=== PATIENT | female | born 1960 | race Caucasian/White ===

== ENCOUNTER → 2022-11-24 15:26 | Outpatient (BNVA) | payer OTHER, SELFPAY | PROVIDERS: Visit Provider Internal Medicine | DX: M17.11 Unilateral primary osteoarthritis, right knee (principal) | CPT/HCPCS: 20610 ==

== ENCOUNTER 2022-11-28 13:31 | Outpatient (REF) | payer OTHER, SELFPAY ==
[2022-11-28 14:54] LABS: Vitamin B12 455 pg/mL (200-900)
== END 2022-11-28 13:32 | disposition home or self-care (01) ==
LOC: HO.LAB 13:31
PROVIDERS: PCP Internal Medicine; Visit Provider Internal Medicine
DX: E53.8 Deficiency of other specified B group vitamins (principal)
CPT/HCPCS: 36415; 82607

== ENCOUNTER 2023-03-25 07:41 | Outpatient (REF) | payer OTHER, SELFPAY ==
[2023-03-25 09:22] LABS: TSH reflex Free T4 1.84 uIU/mL (0.32-4.0)
[2023-03-25 09:25] LABS: Alanine Aminotransferase 16 U/L (0-31); Albumin Level 4.1 g/dL (3.5-5.0); Alkaline Phosphatase 95 U/L (39-117); Anion Gap 19 (12-20); Aspartate Amino Transferase 28 U/L (5-31); Bilirubin Total 0.9 mg/dL (0.0-1.0); Blood Urea Nitrogen 6 mg/dL (9-16); C Reactive Protein 3.67 mg/dL (< or = 0.50); Calcium 9.8 mg/dL (8.4-10.2); Carbon Dioxide 21 mmol/L (22-29); Chloride 100 mmol/L (96-108); Estimated Glomerular Filt Rate > 60; Glucose Random 105 mg/dL (60-115); Sodium 136 mmol/L (135-145); Total Protein 8.1 g/dL (6.5-8.0)
[2023-03-25 15:49] LABS: CDiff Gene PCR NEGATIVE (Negative)
[2023-03-26 09:48] LABS: Adenovirus F 40/41 Not Detected (Not Detect.); Astrovirus Not Detected (Not Detect.); Campylobacter Not Detected (Not Detect.); Cryptosporidium Not Detected (Not Detect.); Cyclospora cayetanensis Not Detected (Not Detect.); E. coli EAEC Not Detected (Not Detect.); E. coli EPEC Not Detected (Not Detect.); E. coli ETEC Not Detected (Not Detect.); E. coli STEC Not Detected (Not Detect.); Entamoeba histolytica Not Detected (Not Detect.); Giardia lamblia Not Detected (Not Detect.); Plesiomonas shigelloides Not Detected (Not Detect.); Rotavirus A Not Detected (Not Detect.); Salmonella Not Detected (Not Detect.); Sapovirus Not Detected (Not Detect.); Shigella sp./EIEC Not Detected (Not Detect.); Vibrio Not Detected (Not Detect.); Vibrio Cholerae Not Detected (Not Detect.); Yersinia enterocolitica Not Detected (Not Detect.)
[2023-03-26 09:50] LABS: Norovirus GI/GII Detected (Not Detect.)
[2023-03-27 19:04] LABS: Immunoglobulin A 612 mg/dL (70-320)
[2023-03-27 19:18] LABS: Gliadin Deamidated IgA Ab 8.3 U/mL; Gliadin Deamidated IgG Ab <1.0 U/mL; Transglutaminase Ab IgG <1.0 U/mL; Transglutaminase IgA <1.0 U/mL
[2023-04-01 13:28] LABS: Endomysial IgA Antibody Negative (Negative)
[2023-04-02 16:24] LABS: Calprotectin, Fecal 60 mcg/g
[2023-04-03 17:28] LABS: Pancreatic Elastase-1 335 mcg/g
== END 2023-03-25 07:42 | disposition home or self-care (01) ==
LOC: HO.LAB 07:41
PROVIDERS: PCP Internal Medicine; Visit Provider Physician Assistant
DX: R19.7 Diarrhea, unspecified (principal)
CPT/HCPCS: 36415; 80053; 82656; 82784; 83993; 84443; 85025; 85652; 86140; 86231; 86258; 86364; 87177; 87209; 87493; 87507

== ENCOUNTER 2023-03-25 12:03 | Outpatient (REF) | payer OTHER, SELFPAY | END 2023-03-25 12:04 | disposition home or self-care (01) | LOC: HO.CT 12:03 | DX: Z13.89 Encounter for screening for other disorder (principal) ==

== ENCOUNTER 2023-04-21 18:07 | Inpatient (IN) | payer OTHER, SELFPAY ==
--- NOTE | ~2023-04-21 | CT_ITS ---
EXAMINATION: CT ABDOMEN AND PELVIS WITH CONTRAST CLINICAL INFORMATION: Abdominal pain. COMPARISON: None available. TECHNIQUE: Multidetector volumetric images were obtained from the superior aspect of the liver through the pubic symphysis following administration 85 mL of Omnipaque 350 intravenous contrast. Sagittal and coronal reformatted images were obtained on the technologist's workstation. Oral contrast: No This CT examination was performed using dose optimization techniques as appropriate, variously including the following: *Automated exposure control *Adjustment of mA and/or kV according to patient size (this includes techniques or standardized protocols for targeted exams where dose is matched to indication/reason for exam; i.e. extremities or head) *Use of iterative reconstruction technique DLP: 346 mGy-cm FINDINGS: LUNG BASES: The visualized lung bases are unremarkable. LIVER, GALLBLADDER, AND BILIARY TREE: The liver is of diminished attenuation. No focal liver lesions are seen. There is no intrahepatic biliary duct dilatation. There has been a prior cholecystectomy. PANCREAS: Unremarkable. SPLEEN: Unremarkable. ADRENAL GLANDS: Unremarkable. KIDNEYS AND URETERS: The kidneys are normal in size, shape, and attenuation. No hydronephrosis, hydroureter, or calculi seen. No perinephric stranding. BLADDER: Unremarkable. GASTROINTESTINAL TRACT: There has been a partial colectomy. There is mild thickening of the descending and rectosigmoid colon. There are diverticula of the descending and the sigmoid colon without diverticulitis. ABDOMINAL WALL: There is a small umbilical hernia containing fat. LYMPH NODES: Normal. VASCULAR: Unremarkable. PELVIC VISCERA: Unremarkable. OSSEOUS STRUCTURES: Unremarkable. CT/CT abdomen pelvis w IV con IMPRESSION: 1. Mildly thickened descending and rectosigmoid colon suggesting mild colitis. 2. Diverticula of the descending and sigmoid colon without diverticulitis. 3. Fatty infiltration of the liver. Fleischner guidelines were followed.
[2023-04-21 18:16] VITALS: BP 122/80; PULSE 81; RESP 20; TEMP 37.6; O2SAT 96; BMI 23.0
--- NOTE | 2023-04-21 18:18 | ED_ITS ---
HPI - General Adult General Chief complaint: Nausea/Vomiting/Diarrhea Stated complaint: dehydration Time Seen by Provider: 04/21/23 19:40 History of Present Illness HPI narrative: Patient is 63 years old with a history of ileocecal resection. Patient has abdominal pain nausea vomiting diarrhea that is been ongoing. Question history of Crohn's in the past. Multiple history of obstruction in the past. History of having low magnesium. Presented today with similar symptoms. Nausea vomiting diarrhea generalized malaise. No coughing or congestion or upper respiratory symptoms. No diaphoresis. Patient from home. Related Data Home Medications Medication Instructions Recorded Confirmed promethazine 12.5 mg tablet 12.5 mg PO QID PRN Nausea 11/24/22 04/22/23 escitalopram oxalate 5 mg tablet 5 mg PO DAILY 04/22/23 04/22/23 Previous Rx's Medication Instructions Recorded dicyclomine 10 mg capsule 10 mg PO BID PRN abdominal cramps 04/23/23 #30 caps famotidine 20 mg tablet (Pepcid) 20 mg PO BID #60 tabs 04/23/23 loperamide 2 mg capsule 2 mg PO Q4H PRN Diarrhea #30 caps 04/23/23 Allergies Allergy/AdvReac Type Severity Reaction Status Date / Time epinephrine Allergy Severe heart Verified 04/22/23 04:41 palpitations amoxicillin AdvReac Intermediate n/v Verified 04/22/23 04:41 Penicillins AdvReac Intermediate rash Verified 04/22/23 04:41 imitation seafood Allergy Severe Anaphylaxis Uncoded 04/22/23 04:41 Review of Systems Review of Systems: Positive abdominal pain positive nausea vomiting diarrhea PMFSH Past Medical History Attestation statement: The following information was validated with the patient. Medical History (Updated 04/23/23 @ 13:04 by Nao Lopez RN) Asthma Chronic abdominal pain Chronic diarrhea GERD (gastroesophageal reflux disease) History of colon polyps Hx of gastric ulcer Surgical History (Updated 04/23/23 @ 13:03 by Noa Lopez RN) History of colon resection History of orthopedic surgery Hx of cholecystectomy Hx of colonoscopy Hx of esophagogastroduodenoscopy Hx of plastic surgery Social History Social History Patient Tobacco Use Status: Never used Tobacco Smoked in Last 30 Days: No Use of substances other than those prescribed or required for medical reasons: No Currently Displaying Signs/Symptoms of Drug Intoxication Withdrawal: No Are you DNR?: No Advance Directives: No Advance Directives Information Provided: Yes Do you have thoughts of harming others: None Do you have a plan to hurt others: No Plan Patient : No service: No Physical Exam ED Vital Signs: Vital Signs - 24 hr 04/21/23 18:16 04/21/23 20:53 Temperature 99.7 F 98.4 F Pulse Rate 81 76 Respiratory Rate 20 16 Blood Pressure 122/80 126/86 Pulse Oximetry 96 96 Oxygen Delivery Method Room Air Room Air BMI result Body Mass Index 23.3 Appearance: Alert. Oriented X3. No acute distress. Eyes: Pupils equal, round and reactive to light. ENT: Pharynx normal. Neck: Normal inspection. Neck supple. No lymph nodes noted. No crepitus CVS: Normal heart rate and rhythm. Pulses normal. Normal S1 and S2 Respiratory: No respiratory distress. Breath sounds normal. No Wheezing. No rales Abdomen: Soft and nontender. No rigidity. No distention. good BS x4 Skin: Skin warm and dry. Normal skin color. Normal skin turgor. Extremities: No lower extremity edema. Neurovascular intact to all extremities. No Lacerations. No Rash Neuro: Oriented X 3. No motor deficit. No sensory deficit. Moving all extermities. No slurred speech Course Course Course Narrative: This is a rapid medical exam: Additional HPI, ROS, PE not included below will be deferred to primary provider. Patient is a 63-year-old female presenting to the emergency department with report of persistent nausea, vomiting, and diarrhea. States that she was contacted by the [facility] earlier in the month and told she was positive for Norovirus, states symptoms have persisted since then. Reports subjective fevers. History of ileocecal repair as well as hernia, complains of abdominal pain in area of hernia. 19:05 Received Oscar text [address] Dr. Falcon-he is concerned for Crohns flare and has added some additional orders, feels she should be admitted for stabilization, prepped for colonoscopy and upper endoscopy later in the week. He can be reached via Oscar Text tonight. Also received critical lab results of magnesium 1.0, lactic 2.3, automatic pilot mechanic notified. Plan: UA, labs Medications Administered Discontinued Medications Generic Name Dose Route Start Last Admin Trade Name Freq PRN Reason Stop Dose Admin Cholestyramine Resin 4 gm 04/22/23 09:00 04/22/23 08:24 Cholestyramine (With Sugar) 4 Gm Powd.Pack PO Not Given DAILY BIANCA Erythromycin 1 cm 04/22/23 21:00 04/23/23 07:45 Erythromycin Base 0.5% Oph Oin 1 Gm Tube EYE-BOTH Not Given BID BIANCA Escitalopram Oxalate 5 mg 04/22/23 09:00 04/23/23 07:45 Escitalopram Oxalate 5 Mg Tablet PO Not Given DAILY BIANCA Magnesium Sulfate 2 gm in 50 mls @ 150 mls/hr 04/21/23 21:02 04/21/23 22:00 Magnesium Sulfate/H2o IV 04/21/23 21:21 Infused ONCE ONE Infusion Sodium Chloride 1,000 mls @ 999 mls/hr 04/21/23 21:15 04/21/23 23:30 Ns IV 04/21/23 22:15 Infused .Q1H1M BIANCA Infusion Sodium Chloride 1,000 mls @ 999 mls/hr 04/21/23 21:15 04/21/23 23:30 Ns IV 04/21/23 22:15 Infused .Q1H1M BIANCA Infusion Promethazine HCl 12.5 mg/ 50.5 mls @ 202 mls/hr 04/21/23 21:27 04/21/23 23:20 Sodium Chloride IV 04/21/23 21:28 Infused ONCE ONE Infusion Sodium Chloride 1,000 mls @ 999 mls/hr 04/21/23 23:45 04/22/23 01:58 Ns IV 04/22/23 00:45 Infused .Q1H1M BIANCA Infusion Sodium Chloride 1,000 mls @ 999 mls/hr 04/21/23 23:45 04/22/23 02:45 Ns IV 04/22/23 00:45 Infused .Q1H1M BIANCA Infusion Magnesium Sulfate 2 gm in 50 mls @ 150 mls/hr 04/22/23 01:54 04/22/23 03:14 Magnesium Sulfate/H2o IV 04/22/23 02:13 Infused ONCE ONE Infusion Metronidazole 500 mg in 100 mls @ 100 mls/hr 04/22/23 02:14 04/22/23 05:43 Flagyl IV 04/22/23 03:13 Infused ONCE ONE Infusion Ceftriaxone Sodium 1 gm/ 50 mls @ 100 mls/hr 04/22/23 02:14 04/22/23 04:20 Sodium Chloride IV 04/22/23 02:43 Infused ONCE ONE Infusion Lactated Ringer's 1,000 mls @ 100 mls/hr 04/22/23 11:15 04/23/23 09:18 Lr IVCONT Infused .Q10H BIANCA Infusion Magnesium Sulfate 2 gm in 50 mls @ 25 mls/hr 04/23/23 06:21 04/23/23 08:34 Magnesium Sulfate/H2o IV 04/23/23 08:20 Infused ONCE ONE Infusion Magnesium Sulfate 2 gm in 50 mls @ 25 mls/hr 04/23/23 09:29 04/23/23 11:45 Magnesium Sulfate/H2o IV 04/23/23 11:28 Infused ONCE ONE Infusion Lactated Ringer's 1,000 mls @ 100 mls/hr 04/23/23 13:30 04/23/23 14:35 Lr IVCONT Not Given .Q10H BIANCA Iohexol 85 ml 04/21/23 23:47 04/21/23 23:48 Iohexol 350 Mg/Ml 100 Ml Infus..Btl IV 04/21/23 23:48 85 ml ONCE ONE Administration Omeprazole 20 mg 04/22/23 09:00 04/23/23 05:21 Omeprazole 20 Mg Capsule. PO 20 mg DAILY@0630 COUNT INCLUDES THE [facility] Administration Ondansetron HCl 4 mg 04/22/23 01:19 04/22/23 01:35 Ondansetron Hcl 4 Mg/2 Ml Vial IVPUSH 04/22/23 01:20 4 mg ONCE ONE Administration Ondansetron HCl 4 mg 04/22/23 01:38 04/23/23 09:56 Ondansetron Hcl 4 Mg/2 Ml Vial IVPUSH 4 mg Q8H PRN Administration Nausea and Vomiting Ondansetron HCl 4 mg 04/22/23 13:08 04/22/23 13:17 Ondansetron Hcl 4 Mg/2 Ml Vial IVPUSH 04/22/23 13:09 4 mg ONCE ONE Administration Pantoprazole Sodium 40 mg 04/22/23 04:18 04/22/23 04:40 Pantoprazole Sodium 40 Mg/10 Ml Vial IVPUSH 04/22/23 04:19 40 mg ONCE ONE Administration Polyethylene Glycol/Electrolytes 4,000 ml 04/22/23 15:00 04/22/23 15:09 Peg 3350/Na Sulf,Bicarb,Cl/Kcl 4,000 Ml Soln.Recon PO 04/22/23 15:01 4,000 ml ONCE ONE Administration Protocol Potassium Chloride 40 meq 04/21/23 21:27 04/21/23 21:46 Potassium Chloride Packet 20 Meq Packet PO 04/21/23 21:28 40 meq ONCE ONE Administration Potassium Chloride 40 meq 04/22/23 02:13 04/22/23 03:20 Potassium Chloride Packet 20 Meq Packet PO 04/22/23 02:14 40 meq ONCE ONE Administration Potassium Chloride 40 meq 04/23/23 09:45 04/23/23 09:45 Potassium Chloride Er 20 Meq Tab.Er.Prt PO 40 meq DAILY BIANCA Administration Sodium Chloride 3 ml 04/22/23 08:00 04/23/23 15:42 0.9 % Sodium Chloride Flush 3 Ml Syringe IVFLUSH Not Given QSHIFT COUNT INCLUDES THE [facility] Medical Decision Making Medical Decision Making [facility] Narrative: Positive history of possible Crohn's. Presented today with having abdominal pain diarrhea generalized malaise. Nausea. CT scan showed mild colitis. GI was consulted. Patient's magnesium was repleted as her magnesium today was 1.0. K was repleted as patient's potassium was 3.0. Case discussed with GI. GI wanted patient to be admitted for further evaluation likely colonoscopy. CT scan showed no evidence of obstruction no abscess no perforation no diverticulitis. Finding was discussed with patient. Will admit for further evaluation. Differential Diagnosis Differential Diagnoses: The differential diagnosis associated with the presentation includes Colitis, abscess, perforation, obstruction, electrolyte disturbance Admission/Observation Consideration of admission/observation: Escalation of care including admission/observation considered Consult Healthcare Provider Management of the patient was discussed with: Hospitalist and Lead Project Manager (GI) Lab Data MDM Lab Attestation statement: I reviewed the patient's lab results. 04/21/23 18:40 04/21/23 18:40 Labs: Lab Results 04/21/23 04/21/23 04/21/23 Range/Units 18:40 18:40 18:40 WBC 5.4 (4.8-10.8) X10*3/uL RBC 3.95 L (4.20-5.50) X10*6/uL Hgb 13.7 (12.0-16.0) g/dl Hct 37.6 (37.0-47.0) % MCV 95.2 (80.0-98.0) fL MCH 34.7 H (27.0-33.0) pg MCHC 36.4 H (31.0-35.0) g/dl RDW 13.4 (11.0-16.0) % Plt Count 138 L (160-400) X10*3/uL MPV 10.2 (9.4-12.3) fL Immature Gran % (Auto) 0.7 H (0.0-0.4) % Neut % (Auto) 57.5 (45-73) % Lymph % (Auto) 32.4 (20-40) % [place] % (Auto) 7.9 (2-11) % Eos % (Auto) 0.6 (0-4) % Baso % (Auto) 0.9 (0-2) % Lymph # (Auto) 1.8 (1.2-4.9) X10*3/uL [place] # (Auto) 0.4 (0.1-1.2) X10*3/uL Eos # (Auto) 0.0 (0.0-0.4) X10*3/uL Baso # (Auto) 0.1 (0.0-0.2) X10*3/uL Abs Immat Gran (auto) 0.04 H (0.00-0.03) X10*3/uL Absolute Neuts (auto) 3.1 (2.0-8.3) x10*3/uL Absolute Nucleated RBC 0.000 (0.0-0.012) X10*3/uL Nucleated RBC % (auto) 0.0 (0.0-0.2) /100WBC ESR (0-20) MM/HR PT (11.1-13.3) SEC INR (0.9-1.1) Sodium 136 (135-145) mmol/L Potassium 3.0 L D (3.3-5.1) mmol/L Chloride 95 L (96-108) mmol/L Carbon Dioxide 26 (22-29) mmol/L Anion Gap 18 (12-20) BUN 5 L (9-16) mg/dL Creatinine 0.56 (0.5-1.4) mg/dL Estim Creat Clear Calc 75.7 Estimated GFR > 60 Random Glucose 97 (60-115) mg/dL Fasting Glucose (60-99) mg/dL Lactic Acid 2.3 H* (0.5-2.0) mmol/L Lactic Acid F/U @ 2Hr (0.5-2.0) mmol/L Lactic Acid F/U @ 4Hr (0.5-2.0) mmol/L Calcium 9.6 (8.4-10.2) mg/dL Magnesium 1.0 L* (1.6-2.6) mg/dL Iron (30-160) mcg/dL TIBC (228-428) mcg/dL % Saturation (15-50) % Unsat Iron Binding ug/dL Ferritin (10-250) ng/mL Total Bilirubin 0.7 (0.0-1.0) mg/dL Direct Bilirubin (0.0-0.5) mg/dL AST 118 H (5-31) U/L ALT 51 H (0-31) U/L Alkaline Phosphatase 105 (39-117) U/L C-Reactive Protein 0.27 (< or = 0.50) mg/dL Total Protein 8.3 H (6.5-8.0) g/dL Albumin 4.7 (3.5-5.0) g/dL Lipase 30 (8-78) U/L Vitamin B12 (200-900) pg/mL Folate (> or = 4.0) ng/mL Urine Color Urine Appearance Urine pH (5.0-9.0) Ur Specific [place] (1.005-1.025) Urine Protein (Neg-Trace) mg/dL Urine Glucose (UA) (Negative) mg/dL Urine Ketones (Negative) mg/dL Urine Blood (Negative) Urine Nitrite (Negative) Ur Leukocyte Esterase (Negative) Urine RBC (0-2) /HPF Urine WBC (0-5) /HPF Ur Squamous Epith Cells (0-2) /HPF Urine Bacteria (None Seen) Hyaline Casts (0-2) /LPF Stool Leukocytes, Qual (NEGATIVE) Stl C. cayetanensis PCR (Not Detect.) Stool Rotavirus A PCR (Not Detect.) Stl Adenov F 40/41 PCR (Not Detect.) Stool Astrovirus (PCR) (Not Detect.) Stool Campylobacter PCR (Not Detect.) Stool Cryptosporidium PCR (Not Detect.) Stl Sh Tox Pr E STEC PCR (Not Detect.) Stool E coli O157 PCR (Not Detect.) Stl Enterotoxigenic E PCR (Not Detect.) Stool EPEC (PCR) (Not Detect.) Stool EAEC (PCR) (Not Detect.) Stl E. histolytica PCR (Not Detect.) Stool Giardia Lamblia PCR (Not Detect.) Stl P. shigelloides PCR (Not Detect.) Stool Salmonella PCR (Not Detect.) Stool Sapovirus (PCR) (Not Detect.) Stl Shigella/EIEC PCR (Not Detect.) St Y.enterocolitica PCR (Not Detect.) Stool Vibrio (PCR) (Not Detect.) Stl Vibrio cholerae PCR (Not Detect.) Stl Norovirus GI/GII PCR (Not Detect.) C. difficile Tox B Gene (Negative) 04/21/23 04/21/23 04/21/23 Range/Units 18:40 19:31 20:56 WBC (4.8-10.8) X10*3/uL RBC (4.20-5.50) X10*6/uL Hgb (12.0-16.0) g/dl Hct (37.0-47.0) % MCV (80.0-98.0) fL MCH (27.0-33.0) pg MCHC (31.0-35.0) g/dl RDW (11.0-16.0) % Plt Count (160-400) X10*3/uL MPV (9.4-12.3) fL Immature Gran % (Auto) (0.0-0.4) % Neut % (Auto) (45-73) % Lymph % (Auto) (20-40) % [place] % (Auto) (2-11) % Eos % (Auto) (0-4) % Baso % (Auto) (0-2) % Lymph # (Auto) (1.2-4.9) X10*3/uL [place] # (Auto) (0.1-1.2) X10*3/uL Eos # (Auto) (0.0-0.4) X10*3/uL Baso # (Auto) (0.0-0.2) X10*3/uL Abs Immat Gran (auto) (0.00-0.03) X10*3/uL Absolute Neuts (auto) (2.0-8.3) x10*3/uL Absolute Nucleated RBC (0.0-0.012) X10*3/uL Nucleated RBC % (auto) (0.0-0.2) /100WBC ESR 19 (0-20) MM/HR PT (11.1-13.3) SEC INR (0.9-1.1) Sodium (135-145) mmol/L Potassium (3.3-5.1) mmol/L Chloride (96-108) mmol/L Carbon Dioxide (22-29) mmol/L Anion Gap (12-20) BUN (9-16) mg/dL Creatinine (0.5-1.4) mg/dL Estim Creat Clear Calc Estimated GFR Random Glucose (60-115) mg/dL Fasting Glucose (60-99) mg/dL Lactic Acid (0.5-2.0) mmol/L Lactic Acid F/U @ 2Hr 2.1 H* (0.5-2.0) mmol/L Lactic Acid F/U @ 4Hr (0.5-2.0) mmol/L Calcium (8.4-10.2) mg/dL Magnesium (1.6-2.6) mg/dL Iron (30-160) mcg/dL TIBC (228-428) mcg/dL % Saturation (15-50) % Unsat Iron Binding ug/dL Ferritin (10-250) ng/mL Total Bilirubin (0.0-1.0) mg/dL Direct Bilirubin (0.0-0.5) mg/dL AST (5-31) U/L ALT (0-31) U/L Alkaline Phosphatase (39-117) U/L C-Reactive Protein (< or = 0.50) mg/dL Total Protein (6.5-8.0) g/dL Albumin (3.5-5.0) g/dL Lipase (8-78) U/L Vitamin B12 (200-900) pg/mL Folate (> or = 4.0) ng/mL Urine Color Dark Yellow Urine Appearance Clear Urine pH 6.5 (5.0-9.0) Ur Specific [place] 1.015 (1.005-1.025) Urine Protein 30 (1+) H (Neg-Trace) mg/dL Urine Glucose (UA) Negative (Negative) mg/dL Urine Ketones Trace (Negative) mg/dL Urine Blood Trace H (Negative) Urine Nitrite Negative (Negative) Ur Leukocyte Esterase Negative (Negative) Urine RBC 6-10 H (0-2) /HPF Urine WBC 0-5 (0-5) /HPF Ur Squamous Epith Cells 6-10 (0-2) /HPF Urine Bacteria Trace (None Seen) Hyaline Casts 3-5 (0-2) /LPF Stool Leukocytes, Qual (NEGATIVE) Stl C. cayetanensis PCR (Not Detect.) Stool Rotavirus A PCR (Not Detect.) Stl Adenov F 40/41 PCR (Not Detect.) Stool Astrovirus (PCR) (Not Detect.) Stool Campylobacter PCR (Not Detect.) Stool Cryptosporidium PCR (Not Detect.) Stl Sh Tox Pr E STEC PCR (Not Detect.) Stool E coli O157 PCR (Not Detect.) Stl Enterotoxigenic E PCR (Not Detect.) Stool EPEC (PCR) (Not Detect.) Stool EAEC (PCR) (Not Detect.) Stl E. histolytica PCR (Not Detect.) Stool Giardia Lamblia PCR (Not Detect.) Stl P. shigelloides PCR (Not Detect.) Stool Salmonella PCR (Not Detect.) Stool Sapovirus (PCR) (Not Detect.) Stl Shigella/EIEC PCR (Not Detect.) St Y.enterocolitica PCR (Not Detect.) Stool Vibrio (PCR) (Not Detect.) Stl Vibrio cholerae PCR (Not Detect.) Stl Norovirus GI/GII PCR (Not Detect.) C. difficile Tox B Gene (Negative) 04/21/23 04/21/23 04/21/23 Range/Units 22:52 22:52 22:52 WBC (4.8-10.8) X10*3/uL RBC (4.20-5.50) X10*6/uL Hgb (12.0-16.0) g/dl Hct (37.0-47.0) % MCV (80.0-98.0) fL MCH (27.0-33.0) pg MCHC (31.0-35.0) g/dl RDW (11.0-16.0) % Plt Count (160-400) X10*3/uL MPV (9.4-12.3) fL Immature Gran % (Auto) (0.0-0.4) % Neut % (Auto) (45-73) % Lymph % (Auto) (20-40) % [place] % (Auto) (2-11) % Eos % (Auto) (0-4) % Baso % (Auto) (0-2) % Lymph # (Auto) (1.2-4.9) X10*3/uL [place] # (Auto) (0.1-1.2) X10*3/uL Eos # (Auto) (0.0-0.4) X10*3/uL Baso # (Auto) (0.0-0.2) X10*3/uL Abs Immat Gran (auto) (0.00-0.03) X10*3/uL Absolute Neuts (auto) (2.0-8.3) x10*3/uL Absolute Nucleated RBC (0.0-0.012) X10*3/uL Nucleated RBC % (auto) (0.0-0.2) /100WBC ESR (0-20) MM/HR PT (11.1-13.3) SEC INR (0.9-1.1) Sodium (135-145) mmol/L Potassium (3.3-5.1) mmol/L Chloride (96-108) mmol/L Carbon Dioxide (22-29) mmol/L Anion Gap (12-20) BUN (9-16) mg/dL Creatinine (0.5-1.4) mg/dL Estim Creat Clear Calc Estimated GFR Random Glucose (60-115) mg/dL Fasting Glucose (60-99) mg/dL Lactic Acid (0.5-2.0) mmol/L Lactic Acid F/U @ 2Hr (0.5-2.0) mmol/L Lactic Acid F/U @ 4Hr (0.5-2.0) mmol/L Calcium (8.4-10.2) mg/dL Magnesium (1.6-2.6) mg/dL Iron (30-160) mcg/dL TIBC (228-428) mcg/dL % Saturation (15-50) % Unsat Iron Binding ug/dL Ferritin (10-250) ng/mL Total Bilirubin (0.0-1.0) mg/dL Direct Bilirubin (0.0-0.5) mg/dL AST (5-31) U/L ALT (0-31) U/L Alkaline Phosphatase (39-117) U/L C-Reactive Protein (< or = 0.50) mg/dL Total Protein (6.5-8.0) g/dL Albumin (3.5-5.0) g/dL Lipase (8-78) U/L Vitamin B12 (200-900) pg/mL Folate (> or = 4.0) ng/mL Urine Color Urine Appearance Urine pH (5.0-9.0) Ur Specific [place] (1.005-1.025) Urine Protein (Neg-Trace) mg/dL Urine Glucose (UA) (Negative) mg/dL Urine Ketones (Negative) mg/dL Urine Blood (Negative) Urine Nitrite (Negative) Ur Leukocyte Esterase (Negative) Urine RBC (0-2) /HPF Urine WBC (0-5) /HPF Ur Squamous Epith Cells (0-2) /HPF Urine Bacteria (None Seen) Hyaline Casts (0-2) /LPF Stool Leukocytes, Qual FEW: < 2/OIF (NEGATIVE) Stl C. cayetanensis PCR Not Detected (Not Detect.) Stool Rotavirus A PCR Not Detected (Not Detect.) Stl Adenov F 40/41 PCR Not Detected (Not Detect.) Stool Astrovirus (PCR) Not Detected (Not Detect.) Stool Campylobacter PCR Not Detected (Not Detect.) Stool Cryptosporidium PCR Not Detected (Not Detect.) Stl Sh Tox Pr E STEC PCR Not Detected (Not Detect.) Stool E coli O157 PCR Not applicable (Not Detect.) Stl Enterotoxigenic E PCR Not Detected (Not Detect.) Stool EPEC (PCR) Not Detected (Not Detect.) Stool EAEC (PCR) Not Detected (Not Detect.) Stl E. histolytica PCR Not Detected (Not Detect.) Stool Giardia Lamblia PCR Not Detected (Not Detect.) Stl P. shigelloides PCR Not Detected (Not Detect.) Stool Salmonella PCR Not Detected (Not Detect.) Stool Sapovirus (PCR) Not Detected (Not Detect.) Stl Shigella/EIEC PCR Not Detected (Not Detect.) St Y.enterocolitica PCR Not Detected (Not Detect.) Stool Vibrio (PCR) Not Detected (Not Detect.) Stl Vibrio cholerae PCR Not Detected (Not Detect.) Stl Norovirus GI/GII PCR Not Detected (Not Detect.) C. difficile Tox B Gene NEGATIVE (Negative) 04/21/23 04/22/23 04/22/23 Range/Units 23:08 01:30 01:30 WBC (4.8-10.8) X10*3/uL RBC (4.20-5.50) X10*6/uL Hgb (12.0-16.0) g/dl Hct (37.0-47.0) % MCV (80.0-98.0) fL MCH (27.0-33.0) pg MCHC (31.0-35.0) g/dl RDW (11.0-16.0) % Plt Count (160-400) X10*3/uL MPV (9.4-12.3) fL Immature Gran % (Auto) (0.0-0.4) % Neut % (Auto) (45-73) % Lymph % (Auto) (20-40) % [place] % (Auto) (2-11) % Eos % (Auto) (0-4) % Baso % (Auto) (0-2) % Lymph # (Auto) (1.2-4.9) X10*3/uL [place] # (Auto) (0.1-1.2) X10*3/uL Eos # (Auto) (0.0-0.4) X10*3/uL Baso # (Auto) (0.0-0.2) X10*3/uL Abs Immat Gran (auto) (0.00-0.03) X10*3/uL Absolute Neuts (auto) (2.0-8.3) x10*3/uL Absolute Nucleated RBC (0.0-0.012) X10*3/uL Nucleated RBC % (auto) (0.0-0.2) /100WBC ESR (0-20) MM/HR PT (11.1-13.3) SEC INR (0.9-1.1) Sodium 140 (135-145) mmol/L Potassium 3.5 (3.3-5.1) mmol/L Chloride 106 (96-108) mmol/L Carbon Dioxide 22 (22-29) mmol/L Anion Gap 16 (12-20) BUN 3 L (9-16) mg/dL Creatinine 0.51 (0.5-1.4) mg/dL Estim Creat Clear Calc 83.1 Estimated GFR > 60 Random Glucose 93 (60-115) mg/dL Fasting Glucose (60-99) mg/dL Lactic Acid 1.8 (0.5-2.0) mmol/L Lactic Acid F/U @ 2Hr (0.5-2.0) mmol/L Lactic Acid F/U @ 4Hr 2.1 H* (0.5-2.0) mmol/L Calcium 8.0 L D (8.4-10.2) mg/dL Magnesium 1.4 L* (1.6-2.6) mg/dL Iron (30-160) mcg/dL TIBC (228-428) mcg/dL % Saturation (15-50) % Unsat Iron Binding ug/dL Ferritin (10-250) ng/mL Total Bilirubin (0.0-1.0) mg/dL Direct Bilirubin (0.0-0.5) mg/dL AST (5-31) U/L ALT (0-31) U/L Alkaline Phosphatase (39-117) U/L C-Reactive Protein (< or = 0.50) mg/dL Total Protein (6.5-8.0) g/dL Albumin (3.5-5.0) g/dL Lipase (8-78) U/L Vitamin B12 (200-900) pg/mL Folate (> or = 4.0) ng/mL Urine Color Urine Appearance Urine pH (5.0-9.0) Ur Specific [place] (1.005-1.025) Urine Protein (Neg-Trace) mg/dL Urine Glucose (UA) (Negative) mg/dL Urine Ketones (Negative) mg/dL Urine Blood (Negative) Urine Nitrite (Negative) Ur Leukocyte Esterase (Negative) Urine RBC (0-2) /HPF Urine WBC (0-5) /HPF Ur Squamous Epith Cells (0-2) /HPF Urine Bacteria (None Seen) Hyaline Casts (0-2) /LPF Stool Leukocytes, Qual (NEGATIVE) Stl C. cayetanensis PCR (Not Detect.) Stool Rotavirus A PCR (Not Detect.) Stl Adenov F 40/41 PCR (Not Detect.) Stool Astrovirus (PCR) (Not Detect.) Stool Campylobacter PCR (Not Detect.) Stool Cryptosporidium PCR (Not Detect.) Stl Sh Tox Pr E STEC PCR (Not Detect.) Stool E coli O157 PCR (Not Detect.) Stl Enterotoxigenic E PCR (Not Detect.) Stool EPEC (PCR) (Not Detect.) Stool EAEC (PCR) (Not Detect.) Stl E. histolytica PCR (Not Detect.) Stool Giardia Lamblia PCR (Not Detect.) Stl P. shigelloides PCR (Not Detect.) Stool Salmonella PCR (Not Detect.) Stool Sapovirus (PCR) (Not Detect.) Stl Shigella/EIEC PCR (Not Detect.) St Y.enterocolitica PCR (Not Detect.) Stool Vibrio (PCR) (Not Detect.) Stl Vibrio cholerae PCR (Not Detect.) Stl Norovirus GI/GII PCR (Not Detect.) C. difficile Tox B Gene (Negative) 04/22/23 04/22/23 04/22/23 Range/Units 05:43 05:43 05:43 WBC 5.8 (4.8-10.8) X10*3/uL RBC 3.71 L (4.20-5.50) X10*6/uL Hgb 12.9 (12.0-16.0) g/dl Hct 36.7 L (37.0-47.0) % MCV 98.9 H (80.0-98.0) fL MCH 34.8 H (27.0-33.0) pg MCHC 35.1 H (31.0-35.0) g/dl RDW 14.1 (11.0-16.0) % Plt Count 137 L (160-400) X10*3/uL MPV 9.9 (9.4-12.3) fL Immature Gran % (Auto) 0.5 H (0.0-0.4) % Neut % (Auto) 68.0 (45-73) % Lymph % (Auto) 21.7 (20-40) % [place] % (Auto) 8.3 (2-11) % Eos % (Auto) 0.5 (0-4) % Baso % (Auto) 1.0 (0-2) % Lymph # (Auto) 1.3 (1.2-4.9) X10*3/uL [place] # (Auto) 0.5 (0.1-1.2) X10*3/uL Eos # (Auto) 0.0 (0.0-0.4) X10*3/uL Baso # (Auto) 0.1 (0.0-0.2) X10*3/uL Abs Immat Gran (auto) 0.03 (0.00-0.03) X10*3/uL Absolute Neuts (auto) 3.9 (2.0-8.3) x10*3/uL Absolute Nucleated RBC 0.000 (0.0-0.012) X10*3/uL Nucleated RBC % (auto) 0.0 (0.0-0.2) /100WBC ESR (0-20) MM/HR PT (11.1-13.3) SEC INR (0.9-1.1) Sodium 136 (135-145) mmol/L Potassium 3.5 (3.3-5.1) mmol/L Chloride 101 (96-108) mmol/L Carbon Dioxide 22 (22-29) mmol/L Anion Gap 17 (12-20) BUN < 3 L (9-16) mg/dL Creatinine 0.55 (0.5-1.4) mg/dL Estim Creat Clear Calc 77.1 Estimated GFR > 60 Random Glucose 111 (60-115) mg/dL Fasting Glucose (60-99) mg/dL Lactic Acid (0.5-2.0) mmol/L Lactic Acid F/U @ 2Hr (0.5-2.0) mmol/L Lactic Acid F/U @ 4Hr (0.5-2.0) mmol/L Calcium 7.9 L (8.4-10.2) mg/dL Magnesium 1.7 Cancelled (1.6-2.6) mg/dL Iron (30-160) mcg/dL TIBC (228-428) mcg/dL % Saturation (15-50) % Unsat Iron Binding ug/dL Ferritin (10-250) ng/mL Total Bilirubin (0.0-1.0) mg/dL Direct Bilirubin (0.0-0.5) mg/dL AST (5-31) U/L ALT (0-31) U/L Alkaline Phosphatase (39-117) U/L C-Reactive Protein (< or = 0.50) mg/dL Total Protein (6.5-8.0) g/dL Albumin (3.5-5.0) g/dL Lipase (8-78) U/L Vitamin B12 (200-900) pg/mL Folate (> or = 4.0) ng/mL Urine Color Urine Appearance Urine pH (5.0-9.0) Ur Specific [place] (1.005-1.025) Urine Protein (Neg-Trace) mg/dL Urine Glucose (UA) (Negative) mg/dL Urine Ketones (Negative) mg/dL Urine Blood (Negative) Urine Nitrite (Negative) Ur Leukocyte Esterase (Negative) Urine RBC (0-2) /HPF Urine WBC (0-5) /HPF Ur Squamous Epith Cells (0-2) /HPF Urine Bacteria (None Seen) Hyaline Casts (0-2) /LPF Stool Leukocytes, Qual (NEGATIVE) Stl C. cayetanensis PCR (Not Detect.) Stool Rotavirus A PCR (Not Detect.) Stl Adenov F 40/41 PCR (Not Detect.) Stool Astrovirus (PCR) (Not Detect.) Stool Campylobacter PCR (Not Detect.) Stool Cryptosporidium PCR (Not Detect.) Stl Sh Tox Pr E STEC PCR (Not Detect.) Stool E coli O157 PCR (Not Detect.) Stl Enterotoxigenic E PCR (Not Detect.) Stool EPEC (PCR) (Not Detect.) Stool EAEC (PCR) (Not Detect.) Stl E. histolytica PCR (Not Detect.) Stool Giardia Lamblia PCR (Not Detect.) Stl P. shigelloides PCR (Not Detect.) Stool Salmonella PCR (Not Detect.) Stool Sapovirus (PCR) (Not Detect.) Stl Shigella/EIEC PCR (Not Detect.) St Y.enterocolitica PCR (Not Detect.) Stool Vibrio (PCR) (Not Detect.) Stl Vibrio cholerae PCR (Not Detect.) Stl Norovirus GI/GII PCR (Not Detect.) C. difficile Tox B Gene (Negative) 04/23/23 04/23/23 04/23/23 Range/Units 05:20 05:20 05:21 WBC (4.8-10.8) X10*3/uL RBC (4.20-5.50) X10*6/uL Hgb (12.0-16.0) g/dl Hct (37.0-47.0) % MCV (80.0-98.0) fL MCH (27.0-33.0) pg MCHC (31.0-35.0) g/dl RDW (11.0-16.0) % Plt Count (160-400) X10*3/uL MPV (9.4-12.3) fL Immature Gran % (Auto) (0.0-0.4) % Neut % (Auto) (45-73) % Lymph % (Auto) (20-40) % [place] % (Auto) (2-11) % Eos % (Auto) (0-4) % Baso % (Auto) (0-2) % Lymph # (Auto) (1.2-4.9) X10*3/uL [place] # (Auto) (0.1-1.2) X10*3/uL Eos # (Auto) (0.0-0.4) X10*3/uL Baso # (Auto) (0.0-0.2) X10*3/uL Abs Immat Gran (auto) (0.00-0.03) X10*3/uL Absolute Neuts (auto) (2.0-8.3) x10*3/uL Absolute Nucleated RBC (0.0-0.012) X10*3/uL Nucleated RBC % (auto) (0.0-0.2) /100WBC ESR (0-20) MM/HR PT 13.5 H (11.1-13.3) SEC INR 1.1 (0.9-1.1) Sodium (135-145) mmol/L Potassium (3.3-5.1) mmol/L Chloride (96-108) mmol/L Carbon Dioxide (22-29) mmol/L Anion Gap (12-20) BUN (9-16) mg/dL Creatinine (0.5-1.4) mg/dL Estim Creat Clear Calc Estimated GFR Random Glucose (60-115) mg/dL Fasting Glucose (60-99) mg/dL Lactic Acid (0.5-2.0) mmol/L Lactic Acid F/U @ 2Hr (0.5-2.0) mmol/L Lactic Acid F/U @ 4Hr (0.5-2.0) mmol/L Calcium (8.4-10.2) mg/dL Magnesium (1.6-2.6) mg/dL Iron (30-160) mcg/dL TIBC (228-428) mcg/dL % Saturation (15-50) % Unsat Iron Binding ug/dL Ferritin 512 H (10-250) ng/mL Total Bilirubin (0.0-1.0) mg/dL Direct Bilirubin (0.0-0.5) mg/dL AST (5-31) U/L ALT (0-31) U/L Alkaline Phosphatase (39-117) U/L C-Reactive Protein (< or = 0.50) mg/dL Total Protein (6.5-8.0) g/dL Albumin (3.5-5.0) g/dL Lipase (8-78) U/L Vitamin B12 415 (200-900) pg/mL Folate 5.1 (> or = 4.0) ng/mL Urine Color Urine Appearance Urine pH (5.0-9.0) Ur Specific [place] (1.005-1.025) Urine Protein (Neg-Trace) mg/dL Urine Glucose (UA) (Negative) mg/dL Urine Ketones (Negative) mg/dL Urine Blood (Negative) Urine Nitrite (Negative) Ur Leukocyte Esterase (Negative) Urine RBC (0-2) /HPF Urine WBC (0-5) /HPF Ur Squamous Epith Cells (0-2) /HPF Urine Bacteria (None Seen) Hyaline Casts (0-2) /LPF Stool Leukocytes, Qual (NEGATIVE) Stl C. cayetanensis PCR (Not Detect.) Stool Rotavirus A PCR (Not Detect.) Stl Adenov F 40/41 PCR (Not Detect.) Stool Astrovirus (PCR) (Not Detect.) Stool Campylobacter PCR (Not Detect.) Stool Cryptosporidium PCR (Not Detect.) Stl Sh Tox Pr E STEC PCR (Not Detect.) Stool E coli O157 PCR (Not Detect.) Stl Enterotoxigenic E PCR (Not Detect.) Stool EPEC (PCR) (Not Detect.) Stool EAEC (PCR) (Not Detect.) Stl E. histolytica PCR (Not Detect.) Stool Giardia Lamblia PCR (Not Detect.) Stl P. shigelloides PCR (Not Detect.) Stool Salmonella PCR (Not Detect.) Stool Sapovirus (PCR) (Not Detect.) Stl Shigella/EIEC PCR (Not Detect.) St Y.enterocolitica PCR (Not Detect.) Stool Vibrio (PCR) (Not Detect.) Stl Vibrio cholerae PCR (Not Detect.) Stl Norovirus GI/GII PCR (Not Detect.) C. difficile Tox B Gene (Negative) 04/23/23 Range/Units 05:21 WBC (4.8-10.8) X10*3/uL RBC (4.20-5.50) X10*6/uL Hgb (12.0-16.0) g/dl Hct (37.0-47.0) % MCV (80.0-98.0) fL MCH (27.0-33.0) pg MCHC (31.0-35.0) g/dl RDW (11.0-16.0) % Plt Count (160-400) X10*3/uL MPV (9.4-12.3) fL Immature Gran % (Auto) (0.0-0.4) % Neut % (Auto) (45-73) % Lymph % (Auto) (20-40) % [place] % (Auto) (2-11) % Eos % (Auto) (0-4) % Baso % (Auto) (0-2) % Lymph # (Auto) (1.2-4.9) X10*3/uL [place] # (Auto) (0.1-1.2) X10*3/uL Eos # (Auto) (0.0-0.4) X10*3/uL Baso # (Auto) (0.0-0.2) X10*3/uL Abs Immat Gran (auto) (0.00-0.03) X10*3/uL Absolute Neuts (auto) (2.0-8.3) x10*3/uL Absolute Nucleated RBC (0.0-0.012) X10*3/uL Nucleated RBC % (auto) (0.0-0.2) /100WBC ESR (0-20) MM/HR PT (11.1-13.3) SEC INR (0.9-1.1) Sodium 132 L (135-145) mmol/L Potassium 3.0 L (3.3-5.1) mmol/L Chloride 96 (96-108) mmol/L Carbon Dioxide 24 (22-29) mmol/L Anion Gap 15 (12-20) BUN 3 L (9-16) mg/dL Creatinine 0.55 (0.5-1.4) mg/dL Estim Creat Clear Calc 77.1 Estimated GFR > 60 Random Glucose (60-115) mg/dL Fasting Glucose 91 (60-99) mg/dL Lactic Acid (0.5-2.0) mmol/L Lactic Acid F/U @ 2Hr (0.5-2.0) mmol/L Lactic Acid F/U @ 4Hr (0.5-2.0) mmol/L Calcium 9.2 D (8.4-10.2) mg/dL Magnesium 1.2 L* (1.6-2.6) mg/dL Iron 61 (30-160) mcg/dL TIBC 238 (228-428) mcg/dL % Saturation 26 (15-50) % Unsat Iron Binding 177 ug/dL Ferritin (10-250) ng/mL Total Bilirubin 1.0 (0.0-1.0) mg/dL Direct Bilirubin 0.5 (0.0-0.5) mg/dL AST 54 H (5-31) U/L ALT 36 H (0-31) U/L Alkaline Phosphatase 88 (39-117) U/L C-Reactive Protein (< or = 0.50) mg/dL Total Protein 7.4 (6.5-8.0) g/dL Albumin 4.2 (3.5-5.0) g/dL Lipase (8-78) U/L Vitamin B12 (200-900) pg/mL Folate (> or = 4.0) ng/mL Urine Color Urine Appearance Urine pH (5.0-9.0) Ur Specific [place] (1.005-1.025) Urine Protein (Neg-Trace) mg/dL Urine Glucose (UA) (Negative) mg/dL Urine Ketones (Negative) mg/dL Urine Blood (Negative) Urine Nitrite (Negative) Ur Leukocyte Esterase (Negative) Urine RBC (0-2) /HPF Urine WBC (0-5) /HPF Ur Squamous Epith Cells (0-2) /HPF Urine Bacteria (None Seen) Hyaline Casts (0-2) /LPF Stool Leukocytes, Qual (NEGATIVE) Stl C. cayetanensis PCR (Not Detect.) Stool Rotavirus A PCR (Not Detect.) Stl Adenov F 40/41 PCR (Not Detect.) Stool Astrovirus (PCR) (Not Detect.) Stool Campylobacter PCR (Not Detect.) Stool Cryptosporidium PCR (Not Detect.) Stl Sh Tox Pr E STEC PCR (Not Detect.) Stool E coli O157 PCR (Not Detect.) Stl Enterotoxigenic E PCR (Not Detect.) Stool EPEC (PCR) (Not Detect.) Stool EAEC (PCR) (Not Detect.) Stl E. histolytica PCR (Not Detect.) Stool Giardia Lamblia PCR (Not Detect.) Stl P. shigelloides PCR (Not Detect.) Stool Salmonella PCR (Not Detect.) Stool Sapovirus (PCR) (Not Detect.) Stl Shigella/EIEC PCR (Not Detect.) St Y.enterocolitica PCR (Not Detect.) Stool Vibrio (PCR) (Not Detect.) Stl Vibrio cholerae PCR (Not Detect.) Stl Norovirus GI/GII PCR (Not Detect.) C. difficile Tox B Gene (Negative) Independent Interpretation I performed an independent interpretation of an: CT Scan Interpretation: No obvious obstruction or abscess or perforation Radiology Impression Discussion of test interpretation with radiology: I have reviewed the radiologist's reading. External Record Review External record reviewed: Inpatient record and Office record Chronic Conditions Patient?s care impacted by: Hypertension History of possible Crohn's history of bowel resection in the past Discharge Plan Discharge Clinical Impression: Colitis, Hypomagnesemia, Acute hypokalemia Patient Disposition: Admitted As Inpatient Interventions: Admission Worksheet (ED) Last Done: 04/22/23 03:54 Discharge Date/Time: 04/22/23 03:54
[2023-04-21 18:46] LABS: MANUAL DIFF FLAG NO
[2023-04-21 19:03] LABS: Basophils Absolute Auto 0.1 X10*3/uL (0.0-0.2); Basophils Percent Auto 0.9 % (0-2); Eosinophils Percent Auto 0.6 % (0-4); Hematocrit 37.6 % (37.0-47.0); Hemoglobin 13.7 g/dl (12.0-16.0); Imm Gran Abs Auto 0.04 X10*3/uL (0.00-0.03); Imm Gran Pct Auto 0.7 % (0.0-0.4); Lymphocytes Absolute Auto 1.8 X10*3/uL (1.2-4.9); Lymphocytes Percent Auto 32.4 % (20-40); Mean Corpuscular HGB Conc 36.4 g/dl (31.0-35.0); Mean Corpuscular Hemoglobin 34.7 pg (27.0-33.0); Mean Corpuscular Volume 95.2 fL (80.0-98.0); Mean Platelet Volume 10.2 fL (9.4-12.3); Monocytes Absolute Auto 0.4 X10*3/uL (0.1-1.2); Monocytes Percent Auto 7.9 % (2-11); Neutrophils Absolute Auto 3.1 x10*3/uL (2.0-8.3); Neutrophils Percent Auto 57.5 % (45-73); Platelet Count 138 X10*3/uL (160-400); Red Blood Count 3.95 X10*6/uL (4.20-5.50); Red Cell Distribution Width 13.4 % (11.0-16.0); White Blood Count 5.4 X10*3/uL (4.8-10.8)
[2023-04-21 19:07] LABS: Alanine Aminotransferase 51 U/L (0-31); Albumin Level 4.7 g/dL (3.5-5.0); Alkaline Phosphatase 105 U/L (39-117); Anion Gap 18 (12-20); Aspartate Amino Transferase 118 U/L (5-31); Bilirubin Total 0.7 mg/dL (0.0-1.0); Blood Urea Nitrogen 5 mg/dL (9-16); Calcium 9.6 mg/dL (8.4-10.2); Carbon Dioxide 26 mmol/L (22-29); Chloride 95 mmol/L (96-108); Creatinine Clr Calc Pharmacy 75.7; Estimated Glomerular Filt Rate > 60; Glucose Random 97 mg/dL (60-115); Lactic Acid 2.3 mmol/L (0.5-2.0); Lipase 30 U/L (8-78); Sodium 136 mmol/L (135-145); Total Protein 8.3 g/dL (6.5-8.0)
[2023-04-21 19:27] LABS: C Reactive Protein 0.27 mg/dL (< or = 0.50)
[2023-04-21 19:38] LABS: Appearance Urine Clear; Color Urine Dark Yellow; Glucose Urine UA Negative (Negative); Leukocyte Esterase Urine Negative (Negative); Nitrite Urine Negative (Negative); PH 6.5 (5.0-9.0); Specific Gravity - Urine 1.015 (1.005-1.025); UMIC TRIGGER UACC YES; Urine Blood Trace (Negative); Urine Ketones Trace mg/dL (Negative); Urine Protein 30 (1+) mg/dL (Neg-Trace)
[2023-04-21 19:40] LABS: Bacteria Urine Trace (None Seen); WBC Urine 0-5 /HPF (0-5)
[2023-04-21 20:24] LABS: Erythrocyte Sedimentation Rate 19 MM/HR (0-20)
[2023-04-21 20:44] LABS: Reflex Lactate? Lactic Acid Added
[2023-04-21 20:53] VITALS: BP 126/86; PULSE 76; RESP 16; TEMP 36.9; O2SAT 96
[2023-04-21] MEDS: Magnesium Sulfate/H2O 2 GM/50 ML PIGGYBACK IV (21:14)
[2023-04-21] MEDS: 0.9 % Sodium Chloride 1,000 ML 999 ML IV ×2 (21:15→21:16)
[2023-04-21 21:21] LABS: ~Lactic Acid-LAB USE ONLY 2.1 mmol/L (0.5-2.0)
[2023-04-21] MEDS: Potassium Chloride Packet 20 MEQ PACKET 40 MEQ PO (21:46)
[2023-04-21 22:58] LABS: Reflex Lactate? 2 Y
[2023-04-21 23:33] LABS: ~Lactic Acid-LAB USE ONLY 2.1 mmol/L (0.5-2.0)
[2023-04-21] MEDS: iohexoL 350 MG/ML 100 ML INFUS..BTL 85 ML IV (23:48)
[2023-04-21 23:57] LABS: CDiff Gene PCR NEGATIVE (Negative)
[2023-04-22] VITALS (8 sets, daily range): BP systolic 144–161; BP diastolic 80–93; PULSE 75–92; RESP 16–18; TEMP 36–37.6; O2SAT 95–98; BMI 23.3
[2023-04-22] MEDS: 0.9 % Sodium Chloride 1,000 ML 999 ML IV ×2 (00:10)
[2023-04-22 00:50] LABS: Leukocytes Stool Qualitative FEW: < 2/OIF (NEGATIVE)
[2023-04-22] MEDS: ondansetron HCL 4 MG/2 ML VIAL IVPUSH ×4 (01:35→21:05)
--- NOTE | 2023-04-22 01:40 | P.HPHOSP_ITS ---
History of Present Illness Date of Service: 04/22/23 Chief Complaint: Nausea/vomiting This is a 63-year-old female with pertinent history of chronic diarrhea due to ileocecal resection, gastroesophageal reflux disease who presents to the emergency department for evaluation of nausea, vomiting and loose stools. Waldo moreno states that 3 years ago she underwent ileocecal resection and has been having chronic diarrhea since. She was diagnosed to have Norovirus infection about a month ago and since then patient has had 2 worsening of her diarrhea, nausea and multiple episodes of nonbloody emesis. Patient states it takes a while for her to recover from any infection due to her history of chronic diarrhea. Endorses intermittent chills and fever. No chest discomfort, palpitations, shortness of breath, abdominal pain, changes in urinary habits. In the emergency department, imaging concerning for colitis and Gastroenterology was consulted who requested admission. Review of Systems Constitutional: Constitutional: Reports fatigue, Reports lethargy and Reports malaise Cardiovascular: Cardiovascular: Reports no additional cardiovascular complaints Respiratory: Respiratory: Reports no additional respiratory complaints Gastrointestinal: Gastrointestinal: Reports diarrhea, Reports nausea and Reports vomiting Genitourinary: Genitourinary: Reports no additional female genitourinary complaints Endocrine: Endocrine: Reports fatigue PMFSH Medical History Chronic diarrhea GERD (gastroesophageal reflux disease) Pertinent family history: No family history of early CAD Social History Smoked in Last 30 Days: No Advance Directives: No Advance Directives Information Provided: Yes Patient : No Meds Allergies Allergy/AdvReac Type Severity Reaction Status Date / Time epinephrine Allergy Severe heart Verified 11/24/22 15:37 palpitations amoxicillin AdvReac Intermediate n/v Verified 11/24/22 15:37 Penicillins AdvReac Intermediate rash Verified 11/24/22 15:37 imitation seafood Allergy Severe Anaphylaxis Uncoded 11/24/22 15:37 Home Medications Medication Instructions Recorded Confirmed Last Taken Type cholestyramine-aspartame 4 gram g PO DAILY 11/24/22 11/24/22 Unknown History oral powder (Cholestyramine Light) omeprazole 20 mg-sodium 1 cap PO DAILY 11/24/22 11/24/22 Unknown History bicarbonate 1.1 gram capsule (Zegerid) promethazine 12.5 mg tablet 12.5 mg PO QID PRN 11/24/22 11/24/22 Unknown History tramadol 50 mg tablet 50 mg PO Q8H PRN 11/24/22 11/24/22 Unknown History Physical Exam Vital Signs and Narrative: Vital Signs: Last Vital Signs Temp 98.4 F 04/21/23 20:53 Pulse 76 04/21/23 20:53 Resp 16 04/21/23 20:53 BP 126/86 04/21/23 20:53 Pulse Ox 96 04/21/23 20:53 O2 Del Method Room Air 04/21/23 20:53 BMI result Body Mass Index 23.0 Middle-aged female lying in bed in no distress Neck supple, no JVD Regular rate and rhythm, S1-S2 heard Regular breath sounds bilaterally, no wheezing or crackles appreciated Abdomen soft nontender, no guarding, no rigidity Patient is awake, alert and oriented to self, place, time and person ; no focal motor deficit Psych: Normal mood No pedal edema Results Labs 04/21/23 18:40 04/21/23 18:40 Labs: Laboratory Results - last 24 hr 04/21/23 04/21/23 04/21/23 18:40 18:40 18:40 MCV 95.2 MCH 34.7 H MCHC 36.4 H RDW 13.4 Plt Count 138 L MPV 10.2 Immature Gran % (Auto) 0.7 H Neut % (Auto) 57.5 Lymph % (Auto) 32.4 [place] % (Auto) 7.9 Eos % (Auto) 0.6 Baso % (Auto) 0.9 Lymph # (Auto) 1.8 [place] # (Auto) 0.4 Eos # (Auto) 0.0 Baso # (Auto) 0.1 Abs Immat Gran (auto) 0.04 H Absolute Neuts (auto) 3.1 Absolute Nucleated RBC 0.000 Nucleated RBC % (auto) 0.0 ESR Anion Gap 18 Estim Creat Clear Calc 75.7 Estimated GFR > 60 Random Glucose 97 Lactic Acid 2.3 H* Lactic Acid F/U @ 2Hr Lactic Acid F/U @ 4Hr Calcium 9.6 Magnesium 1.0 L* Total Bilirubin 0.7 AST 118 H ALT 51 H Alkaline Phosphatase 105 C-Reactive Protein 0.27 Total Protein 8.3 H Albumin 4.7 Lipase 30 Urine Color Urine Appearance Urine pH Ur Specific [place] Urine Protein Urine Glucose (UA) Urine Ketones Urine Blood Urine Nitrite Ur Leukocyte Esterase Urine RBC Urine WBC Ur Squamous Epith Cells Urine Bacteria Hyaline Casts Stool Leukocytes, Qual C. difficile Tox B Gene 04/21/23 04/21/23 04/21/23 18:40 19:31 20:56 MCV MCH MCHC RDW Plt Count MPV Immature Gran % (Auto) Neut % (Auto) Lymph % (Auto) [place] % (Auto) Eos % (Auto) Baso % (Auto) Lymph # (Auto) [place] # (Auto) Eos # (Auto) Baso # (Auto) Abs Immat Gran (auto) Absolute Neuts (auto) Absolute Nucleated RBC Nucleated RBC % (auto) ESR 19 Anion Gap Estim Creat Clear Calc Estimated GFR Random Glucose Lactic Acid Lactic Acid F/U @ 2Hr 2.1 H* Lactic Acid F/U @ 4Hr Calcium Magnesium Total Bilirubin AST ALT Alkaline Phosphatase C-Reactive Protein Total Protein Albumin Lipase Urine Color Dark Yellow Urine Appearance Clear Urine pH 6.5 Ur Specific [place] 1.015 Urine Protein 30 (1+) H Urine Glucose (UA) Negative Urine Ketones Trace Urine Blood Trace H Urine Nitrite Negative Ur Leukocyte Esterase Negative Urine RBC 6-10 H Urine WBC 0-5 Ur Squamous Epith Cells 6-10 Urine Bacteria Trace Hyaline Casts 3-5 Stool Leukocytes, Qual C. difficile Tox B Gene 04/21/23 04/21/23 04/21/23 22:52 22:52 23:08 MCV MCH MCHC RDW Plt Count MPV Immature Gran % (Auto) Neut % (Auto) Lymph % (Auto) [place] % (Auto) Eos % (Auto) Baso % (Auto) Lymph # (Auto) [place] # (Auto) Eos # (Auto) Baso # (Auto) Abs Immat Gran (auto) Absolute Neuts (auto) Absolute Nucleated RBC Nucleated RBC % (auto) ESR Anion Gap Estim Creat Clear Calc Estimated GFR Random Glucose Lactic Acid Lactic Acid F/U @ 2Hr Lactic Acid F/U @ 4Hr 2.1 H* Calcium Magnesium Total Bilirubin AST ALT Alkaline Phosphatase C-Reactive Protein Total Protein Albumin Lipase Urine Color Urine Appearance Urine pH Ur Specific [place] Urine Protein Urine Glucose (UA) Urine Ketones Urine Blood Urine Nitrite Ur Leukocyte Esterase Urine RBC Urine WBC Ur Squamous Epith Cells Urine Bacteria Hyaline Casts Stool Leukocytes, Qual FEW: < 2/OIF C. difficile Tox B Gene NEGATIVE Imaging Radiologist's Impressions: Impressions Abdomen/Pelvis CT 04/21/23 23:30 IMPRESSION: 1. Mildly thickened descending and rectosigmoid colon suggesting mild colitis. 2. Diverticula of the descending and sigmoid colon without diverticulitis. 3. Fatty infiltration of the liver. Fleischner guidelines were followed. Assessment and Plan (1) Diarrhea: Status: Acute (2) Vomiting: Status: Acute Plan This is a 63-year-old female with pertinent history of chronic diarrhea due to ileocecal resection, gastroesophageal reflux disease who presents to the emergency department for evaluation of nausea, vomiting and loose stools. #. Intractable vomiting, diarrhea. With imaging suggestive of mild colitis. Patient resuscitated with IV crystalloids. Will continue supportive care. Clear liquid diet. Gastroenterology was consulted from the ER, appreciate assistance. Administered empiric IV antibiotics. GI panel pending #. Hypokalemia and hypomagnesemia due to GI losses. Repleted. Continue to monitor #. Gastroesophageal reflux disease. On PPI Med rec pending DVT prophylaxis: Mechanical. Hold Lovenox until GI evaluation Full code Time Spent With Patient Time: Total time managing care of this patient today ____ minutes. Quality Stroke Does the patient have a stroke diagnosis?: No VTE Prior VTE?: No VTE Risk Level:: Medical - moderate - high VTE Device Contraindication: N/A - Device Ordered VTE Drug Contraindication: Treatment Not Indicated
[2023-04-22 01:45] LABS: Lactic Acid 1.8 mmol/L (0.5-2.0)
[2023-04-22 01:53] LABS: Anion Gap 16 (12-20); Blood Urea Nitrogen 3 mg/dL (9-16); Carbon Dioxide 22 mmol/L (22-29); Chloride 106 mmol/L (96-108); Creatinine Clr Calc Pharmacy 83.1; Estimated Glomerular Filt Rate > 60; Glucose Random 93 mg/dL (60-115); Magnesium 1.4 mg/dL (1.6-2.6); Potassium 3.5 mmol/L (3.3-5.1); Sodium 140 mmol/L (135-145)
[2023-04-22] MEDS: Magnesium Sulfate/H2O 2 GM/50 ML PIGGYBACK IV (02:13)
[2023-04-22] MEDS: Potassium Chloride Packet 20 MEQ PACKET 40 MEQ PO (03:20)
[2023-04-22] MEDS: cefTRIAXone sodium 1 GM in 0.9 % Sodium Chloride 50 ML IV (03:20)
--- NOTE | 2023-04-22 03:32 | PC.NURSE ---
report called to [place] [id number] rn, to be transported to floor by licensed dispensing optician.
[2023-04-22] MEDS: Pantoprazole Sodium 40 MG/10 ML VIAL IVPUSH (04:40)
[2023-04-22] MEDS: metroNIDAZOLE/NS 500 MG/100 ML PIGGYBACK 100 MG IV (04:41)
--- NOTE | 2023-04-22 07:02 | PHA.MEDREC ---
Pharmacy Consult ? Medication Reconciliation Pharmacy has reviewed the medication reconciliation done by RN. Discontinued tramadol order as it was last filled 11/13.
[2023-04-22 07:04] LABS: MANUAL DIFF FLAG NO
[2023-04-22 07:16] LABS: Basophils Absolute Auto 0.1 X10*3/uL (0.0-0.2); Eosinophils Percent Auto 0.5 % (0-4); Hematocrit 36.7 % (37.0-47.0); Hemoglobin 12.9 g/dl (12.0-16.0); Imm Gran Abs Auto 0.03 X10*3/uL (0.00-0.03); Imm Gran Pct Auto 0.5 % (0.0-0.4); Lymphocytes Absolute Auto 1.3 X10*3/uL (1.2-4.9); Lymphocytes Percent Auto 21.7 % (20-40); Mean Corpuscular HGB Conc 35.1 g/dl (31.0-35.0); Mean Corpuscular Hemoglobin 34.8 pg (27.0-33.0); Mean Corpuscular Volume 98.9 fL (80.0-98.0); Mean Platelet Volume 9.9 fL (9.4-12.3); Monocytes Absolute Auto 0.5 X10*3/uL (0.1-1.2); Monocytes Percent Auto 8.3 % (2-11); Neutrophils Absolute Auto 3.9 x10*3/uL (2.0-8.3); Platelet Count 137 X10*3/uL (160-400); Red Blood Count 3.71 X10*6/uL (4.20-5.50); Red Cell Distribution Width 14.1 % (11.0-16.0); White Blood Count 5.8 X10*3/uL (4.8-10.8)
[2023-04-22 07:29] LABS: Anion Gap 17 (12-20); Blood Urea Nitrogen < 3 mg/dL (9-16); Calcium 7.9 mg/dL (8.4-10.2); Carbon Dioxide 22 mmol/L (22-29); Chloride 101 mmol/L (96-108); Creatinine Clr Calc Pharmacy 77.1; Estimated Glomerular Filt Rate > 60; Glucose Random 111 mg/dL (60-115); Magnesium 1.7 mg/dL (1.6-2.6); Potassium 3.5 mmol/L (3.3-5.1); Sodium 136 mmol/L (135-145)
--- NOTE | 2023-04-22 07:50 | PM.EVENT ---
Event Note Date of Service: 04/22/23 Event Note: pt seen and examined. Admitted this morning with n/v diarrhea, mild colitis on CT. Suspect viral gastroenteritis, hydrate, symptomatic treatment, empiric Abx for now. home when improves. O/w A/p per h and p from today Time Spent With Patient Time: Total time managing care of this patient today ____ minutes.
[2023-04-22] MEDS: Omeprazole 20 MG CAPSULE.DR PO (08:17)
[2023-04-22] MEDS: 0.9 % Sodium Chloride Flush 3 ML SYRINGE IVFLUSH ×2 (08:18→19:58)
[2023-04-22 09:39] LABS: Adenovirus F 40/41 Not Detected (Not Detect.); Astrovirus Not Detected (Not Detect.); Campylobacter Not Detected (Not Detect.); Cryptosporidium Not Detected (Not Detect.); Cyclospora cayetanensis Not Detected (Not Detect.); E. coli EAEC Not Detected (Not Detect.); E. coli EPEC Not Detected (Not Detect.); E. coli ETEC Not Detected (Not Detect.); E. coli STEC Not Detected (Not Detect.); Entamoeba histolytica Not Detected (Not Detect.); Giardia lamblia Not Detected (Not Detect.); Norovirus GI/GII Not Detected (Not Detect.); Plesiomonas shigelloides Not Detected (Not Detect.); Rotavirus A Not Detected (Not Detect.); Salmonella Not Detected (Not Detect.); Sapovirus Not Detected (Not Detect.); Shigella sp./EIEC Not Detected (Not Detect.); Vibrio Not Detected (Not Detect.); Vibrio Cholerae Not Detected (Not Detect.); Yersinia enterocolitica Not Detected (Not Detect.)
[2023-04-22] MEDS: Lactated Ringers 1,000 ML 100 ML IVCONT ×2 (11:41→21:05)
--- NOTE | 2023-04-22 12:05 | P.EN_ITS ---
Event Note Date of Service: 04/22/23 Event Note: GI Consult-Full note dictated. History from patient, EMR, and RN Imp: Chronic diarrhea and nausea with recent exacerbation after a Norovirus infection. Diff dx: R/O Celiac disease, R/O IBD, R/O microscopic colitis. R/O Masha- Hodges syndrome re: her chronic diarrhea and reported history of ulcers. Rec: EGD and Colonoscopy with MAC on 04/23. Full consent obtained for this, including risks of bleeding and perforation. F/U labs in the AM. Check Gastrin level in AM. If workup is negative will then try to manage symptoms with cholestyramine, anti-diarrheal agents, antispasmodics, PPI, antiemetics, etc. D/W patient in detail and she is comfortable with this plan. Thanks Time Spent With Patient Time: Total time managing care of this patient today ____ minutes.
--- NOTE | 2023-04-22 13:11 | CONS_ITS ---
DATE OF SERVICE: 04/22/2023 REASON FOR CONSULTATION: Nausea, vomiting, diarrhea, abdominal discomfort, and abnormal CT scan of colon. HISTORY OF PRESENT ILLNESS: This has been obtained from the patient, the medical record, and her nurse. The patient is a 63-year-old female, who describes a long-standing history of fairly chronic GI complaints including diarrhea, nausea, reflux, and abdominal discomfort. The patient describes basically a relatively lifelong history of these symptoms, but about 3 years ago, she developed a small bowel obstruction requiring resection of the terminal ileum and portion of the right colon. This was done in [place]. From what the patient describes, the surgeon and the pathologist both felt that there was no sign of Crohn's disease nor any other specific abnormality. Subsequent to that, she describes that her diarrhea has been worse and fairly chronic on a daily basis. She did try cholestyramine intermittently, which would help somewhat with the diarrhea, but caused a lot of bloating and discomfort, and therefore she did not use it very regularly. The patient has had a colonoscopy in the past that was reportedly negative for any sign of inflammatory bowel disease. She also describes a history of upper endoscopies with the finding of ulcers. The patient was basically in her usual state of health with her chronic GI symptoms and occasional exacerbations up until early this month when she developed a Norovirus infection documented on stool specimen. Ever since then, her diarrhea, nausea, intermittent vomiting, and weakness have been much worse and persistent. She did not notice any sign of bleeding. She denies any signs of jaundice. She was having abdominal discomfort and cramps. Due to these persistent symptoms, she came to the ER and was admitted for further treatment and evaluation. The patient does describe a history of chronic problems with low magnesium levels for which she takes a magnesium supplement ever since her intestinal surgery 3 years ago. She also takes a chronic PPI in regard to reflux and history of ulcer disease. There is a family history of celiac disease in a daughter, but no other definitive family history of GI disease. She does describe that her mother and a paternal uncle did have chronic GI complaints, but no definitive diagnosis. There is no known family history of Crohn's disease nor ulcerative colitis. MEDICATIONS: At home included; cholestyramine p.r.n., escitalopram, Zegerid and promethazine p.r.n. Her medications here in the hospital include acetaminophen p.r.n., escitalopram, magnesium, melatonin p.r.n., omeprazole, Zofran p.r.n. PAST MEDICAL HISTORY: Resection of the terminal ileum and a portion of the ascending colon 3 years ago as described above. The pathology was reportedly negative for Crohn's disease nor any other definitive pathology. She has also had a cholecystectomy. She describes some orthopedic surgeries, but no joint replacement. She describes some mild asthma. She denies any history of heart disease, diabetes, stroke, nor renal disease. She has had issues with low magnesium levels. SOCIAL HISTORY: She is an anesthesiologist. She does not smoke nor use any significant amounts of alcohol. FAMILY HISTORY: As above with her daughter having celiac disease. REVIEW OF SYSTEMS: CONSTITUTIONAL: She has been feeling weak and anorectic at home. SKIN: No rash. No pruritus. CARDIAC: No chest pain. PULMONARY: No cough or hemoptysis. GI: As above. Urinary: No dysuria. No hematuria. NEUROLOGIC: No headache or seizures. PHYSICAL EXAMINATION: GENERAL: The patient is a pleasant, alert, well-appearing female. SKIN: Warm and dry. HEENT: Anicteric sclerae. Moist mucous membranes. NECK: Supple without lymphadenopathy. CHEST: Clear. CARDIAC: Normal S1, S2. ABDOMEN: Soft, nondistended. Normal bowel sounds without any focal mass, rebound, guarding or tenderness. EXTREMITIES: Without edema. NEUROLOGIC: She is alert and oriented. LABORATORY DATA: As above. Her CT scan in the ER describes some mild thickening of the descending and rectosigmoid colon, but without any definitive colitis. There is some diverticulosis, but no diverticulitis. There appeared to be a fatty liver. White blood cell count 5.8, hemoglobin 12.9, MCV 99, platelets 137,000. Initial electrolytes showed a sodium 136, potassium 3.0, chloride 95, CO2 of 26, BUN 5, creatinine 0.6. Lactic acid level is 2.3. Magnesium level is 1.0. AST 118, ALT 51, alkaline phosphatase 105. C-reactive protein 0.3, albumin 4.7. Lipase 30. Her sedimentation rate was 19. A stool specimen was negative for any bacterial, viral, nor parasitic infection. There were less than 2 WBCs. Stool for C. diff was negative. Labs from earlier in the month revealed negative labs for celiac disease. IMPRESSION: Given the patient's clinical history, I think it would be important to exclude any etiologies of her chronic gastrointestinal complaints including that of inflammatory bowel disease, microscopic colitis, and/or celiac disease. As such, I would recommend an upper endoscopy and colonoscopy tomorrow with biopsies of both the upper and lower gastrointestinal tracts to rule out those possibilities. Full consent has been obtained from her for both procedures, including risks of bleeding and perforation. The procedures will be done with monitored anesthesia care. If the workup is negative, we did review that her condition may at least be partially related to a bile-induced diarrhea as a result of her cholecystectomy and the more recent resection of the ileum and ileocecal valve. If the workup is completely negative, I would then recommend trials of different things to try to treat this symptomatically such as antispasmodics, cholestyramine, antidiarrheal agents, and antiemetics. She will continue her PPI as needed for any acid reflux-induced symptoms and her previous history of ulcer disease. I shall check a serum gastrin level in the morning to rule out the very unlikely possibility of Masha-Hodges syndrome that could be contributing to her diarrhea and reported history of ulcers. She will need to continue on her magnesium supplements long-term. If the workup is completely negative and her symptoms continue to prove refractory, then other things to consider would be that of further evaluation with a small bowel video capsule study and MRI of the abdomen with enterography. This has all been discussed with the patient in detail and she is comfortable with the plan. Thank you for the consultation. MD AMAYA Amado/ANNABELLE / [phone] MTDAntonette
--- NOTE | 2023-04-22 13:50 | MHC.CM.PN ---
PATIENT IS INDEPENDENT WITH ALL ADLS. SHE LIVES ALONE AND IS FAIRLY NEW TO THE AREA. PATIENT IS EMPLOYED HERE AND USED [employer] TO COME FOR THIS ADMISSION. PLAN IS FOR ENDOSCOPY AND COLONOSCOPY TOMORROW DC WILL BE PENDING RESULTS. SERGEY 04/22/23 EXPLAINED ORIGINAL IN CHART
[2023-04-22] MEDS: PEG 3350/Na Sulf,Bicarb,Cl/KCL 4,000 ML SOLN.RECON 4000 ML PO (15:09)
--- NOTE | 2023-04-22 19:37 | MHC.SHP ---
Pre-Procedural Eval Section A Date of Service: 04/23/23 The patient is an INPATIENT: Yes The History & Physical has been completed within 30 days and I have reviewed it.: Yes Section B Chief Complaint: Vomiting Allergies: Allergies Allergy/AdvReac Type Severity Reaction Status Date / Time epinephrine Allergy Severe heart Verified 04/22/23 04:41 palpitations amoxicillin AdvReac Intermediate n/v Verified 04/22/23 04:41 Penicillins AdvReac Intermediate rash Verified 04/22/23 04:41 imitation seafood Allergy Severe Anaphylaxis Uncoded 04/22/23 04:41 Plan I have reviewed the history and physical and performed a pertinent physical examination on my patient. No changes have occurred unless specified. Time Spent With Patient Time: Total time managing care of this patient today ____ minutes.
[2023-04-22] MEDS: Erythromycin Base 0.5% Oph Oin 1 GM TUBE 1 CM EYE-BOTH (19:59)
[2023-04-23] MEDS: Omeprazole 20 MG CAPSULE.DR PO (05:21)
[2023-04-23 06:03] LABS: INTERNATIONAL NORM RATIO 1.1 (0.9-1.1); Prothrombin Time 13.5 SEC (11.1-13.3)
[2023-04-23 06:22] LABS: Alanine Aminotransferase 36 U/L (0-31); Albumin Level 4.2 g/dL (3.5-5.0); Alkaline Phosphatase 88 U/L (39-117); Anion Gap 15 (12-20); Aspartate Amino Transferase 54 U/L (5-31); Bilirubin Direct 0.5 mg/dL (0.0-0.5); Blood Urea Nitrogen 3 mg/dL (9-16); Calcium 9.2 mg/dL (8.4-10.2); Carbon Dioxide 24 mmol/L (22-29); Chloride 96 mmol/L (96-108); Creatinine Clr Calc Pharmacy 77.1; Estimated Glomerular Filt Rate > 60; Glucose Fasting 91 mg/dL (60-99); Iron 61 mcg/dL (30-160); Magnesium 1.2 mg/dL (1.6-2.6); Percent Iron Saturation 26 % (15-50); Sodium 132 mmol/L (135-145); Total Iron Binding Capacity 238 mcg/dL (228-428); Total Protein 7.4 g/dL (6.5-8.0); Unsaturated Iron Binding 177 ug/dL
[2023-04-23] MEDS: Magnesium Sulfate/H2O 2 GM/50 ML PIGGYBACK IV ×2 (06:29→09:45)
[2023-04-23 06:30] LABS: Ferritin 512 ng/mL (10-250)
[2023-04-23 06:50] LABS: Folate 5.1 ng/mL (> or = 4.0); Vitamin B12 415 pg/mL (200-900)
[2023-04-23 07:16] VITALS: BP 160/85; PULSE 74; RESP 16; TEMP 36.1; O2SAT 96
--- NOTE | 2023-04-23 09:27 | P.PNIM_ITS ---
Subjective Subjective Date of Service: 04/23/23 Physical Exam Vital Signs: Vital Signs: Last Vital Signs Temp 97 F 04/23/23 07:16 Pulse 74 04/23/23 07:16 Resp 16 04/23/23 07:16 BP 160/85 H 04/23/23 07:16 Pulse Ox 96 04/23/23 07:16 O2 Del Method Room Air 04/23/23 07:16 BMI result Body Mass Index 23.3 Objective Data Active Medications Acetaminophen (Acetaminophen 325 Mg Tablet) 650 mg PO Q6H PRN PRN Reason: Pain, Mild (Pain Scale 1-3) Acetaminophen (Acetaminophen Supp 650 Mg Supp.Rect) 650 mg NM Q6H PRN PRN Reason: Pain, Mild (Pain Scale 1-3) Erythromycin (Erythromycin Base 0.5% Oph Oin 1 Gm Tube) 1 cm EYE-BOTH BID [facility] Last Admin: 04/23/23 07:45 Dose: Not Given Documented By: MAREK Non-Admin Reason: Patient Refused Escitalopram Oxalate (Escitalopram Oxalate 5 Mg Tablet) 5 mg PO DAILY [facility] Last Admin: 04/23/23 07:45 Dose: Not Given Documented By: MAREK Non-Admin Reason: Patient Refused Lactated Ringer's (Lr) 1,000 mls @ 100 mls/hr IVCONT .Q10H [facility] Last Infusion: 04/23/23 09:18 Dose: 0 mls/hr Documented By: MAREK Melatonin (Melatonin 3 Mg Tablet) 6 mg PO BEDTIME PRN PRN Reason: Insomnia Omeprazole (Omeprazole 20 Mg Capsule.) 20 mg PO DAILY@0630 [facility] Last Admin: 04/23/23 05:21 Dose: 20 mg Documented By: NINA Ondansetron HCl (Ondansetron Hcl 4 Mg/2 Ml Vial) 4 mg IVPUSH Q8H PRN PRN Reason: Nausea and Vomiting Last Admin: 04/22/23 21:05 Dose: 4 mg Documented By: OZORALB Sodium Chloride (0.9 % Sodium Chloride Flush 3 Ml Syringe) 3 ml IVFLUSH QSHIFT [facility] Last Admin: 04/23/23 07:33 Dose: Not Given Documented By: MAREK Non-Admin Reason: IV Running Labs 04/22/23 05:43 04/23/23 05:21 Labs: Laboratory Results - last 24 hr 04/21/23 04/23/23 04/23/23 22:52 05:20 05:20 PT INR Anion Gap Estim Creat Clear Calc Estimated GFR Fasting Glucose Calcium Magnesium Iron TIBC % Saturation Unsat Iron Binding Ferritin 512 H Total Bilirubin Direct Bilirubin AST ALT Alkaline Phosphatase Total Protein Albumin Vitamin B12 415 Folate 5.1 Stl C. cayetanensis PCR Not Detected Stool Rotavirus A PCR Not Detected Stl Adenov F 40/41 PCR Not Detected Stool Astrovirus (PCR) Not Detected Stool Campylobacter PCR Not Detected Stool Cryptosporidium PCR Not Detected Stl Sh Tox Pr E STEC PCR Not Detected Stool E coli O157 PCR Not applicable Stl Enterotoxigenic E PCR Not Detected Stool EPEC (PCR) Not Detected Stool EAEC (PCR) Not Detected Stl E. histolytica PCR Not Detected Stool Giardia Lamblia PCR Not Detected Stl P. shigelloides PCR Not Detected Stool Salmonella PCR Not Detected Stool Sapovirus (PCR) Not Detected Stl Shigella/EIEC PCR Not Detected St Y.enterocolitica PCR Not Detected Stool Vibrio (PCR) Not Detected Stl Vibrio cholerae PCR Not Detected Stl Norovirus GI/GII PCR Not Detected 04/23/23 04/23/23 05:21 05:21 PT 13.5 H INR 1.1 Anion Gap 15 Estim Creat Clear Calc 77.1 Estimated GFR > 60 Fasting Glucose 91 Calcium 9.2 D Magnesium 1.2 L* Iron 61 TIBC 238 % Saturation 26 Unsat Iron Binding 177 Ferritin Total Bilirubin 1.0 Direct Bilirubin 0.5 AST 54 H ALT 36 H Alkaline Phosphatase 88 Total Protein 7.4 Albumin 4.2 Vitamin B12 Folate Stl C. cayetanensis PCR Stool Rotavirus A PCR Stl Adenov F 40/41 PCR Stool Astrovirus (PCR) Stool Campylobacter PCR Stool Cryptosporidium PCR Stl Sh Tox Pr E STEC PCR Stool E coli O157 PCR Stl Enterotoxigenic E PCR Stool EPEC (PCR) Stool EAEC (PCR) Stl E. histolytica PCR Stool Giardia Lamblia PCR Stl P. shigelloides PCR Stool Salmonella PCR Stool Sapovirus (PCR) Stl Shigella/EIEC PCR St Y.enterocolitica PCR Stool Vibrio (PCR) Stl Vibrio cholerae PCR Stl Norovirus GI/GII PCR Microbiology Microbiology Results: Microbiology 04/21/23 19:47 Blood Culture - Preliminary Blood - Venous No growth after 24 hours. 04/21/23 18:40 Blood Culture - Preliminary Blood - Venous No growth after 24 hours. Assessment and Plan (1) Vomiting: Status: Acute (2) Diarrhea: Status: Acute (3) GERD (gastroesophageal reflux disease): Status: Acute (4) Chronic diarrhea: Status: Acute Plan 63-year-old female with pertinent history of chronic diarrhea due to ileocecal resection, gastroesophageal reflux disease who presents to the emergency department for evaluation of nausea, vomiting and loose stools. #.? Intractable vomiting, diarrhea.? With imaging suggestive of mild colitis.? nl WBC, doubt bacterial colitis, hold Abx, for EGD and colonoscopy today #.? Hypokalemia and hypomagnesemia due to GI losses and still low, will replet with PO K and IV mag #.? Gastroesophageal reflux disease.? On PPI #. conjuctivitis Time Spent With Patient Time: Total time managing care of this patient today ____ minutes. Quality Stroke Does the patient have a stroke diagnosis?: No VTE Prior VTE?: No VTE Risk Level:: Medical - moderate - high VTE Device Contraindication: N/A - Device Ordered VTE Drug Contraindication: Treatment Not Indicated
[2023-04-23] MEDS: Potassium Chloride ER 20 MEQ TAB.ER.PRT 40 MEQ PO (09:45)
--- NOTE | 2023-04-23 09:54 | P.CONAN_ITS ---
HPI - Anesthesia Eval Consult details Narrative: 63 yo female patient for EGD, Colonoscopy PMF Active Problems Active Problems: All Active Problems (Updated 04/23/23 @ 12:30 by , ) Vomiting (Acute) Diarrhea (Acute) GERD (gastroesophageal reflux disease) (Acute) Chronic diarrhea (Acute) Colitis (Acute) Hypomagnesemia (Acute) Acute hypokalemia (Acute) Osteoarthritis of right knee (Acute) Past Medical History Medical History Chronic diarrhea GERD (gastroesophageal reflux disease) Family History Family history of problems with anesthesia: No Surgical History Surgical History (Updated 04/23/23 @ 13:03 by Noa Lopez RN) History of colon resection History of orthopedic surgery Hx of cholecystectomy Hx of colonoscopy Hx of esophagogastroduodenoscopy Hx of plastic surgery History of Problems with Anesthesia: Yes (Sore throat after 1 of the surgeries) Social History Social History Patient Tobacco Use Status: Never used Tobacco Smoked in Last 30 Days: No Currently Displaying Signs/Symptoms of Drug Intoxication Withdrawal: No Advance Directives: No Advance Directives Information Provided: Yes Do you have thoughts of harming others: None Do you have a plan to hurt others: No Plan Patient : No service: No Meds Allergies Allergy/AdvReac Type Severity Reaction Status Date / Time epinephrine Allergy Severe heart Verified 04/22/23 04:41 palpitations amoxicillin AdvReac Intermediate n/v Verified 04/22/23 04:41 Penicillins AdvReac Intermediate rash Verified 04/22/23 04:41 imitation seafood Allergy Severe Anaphylaxis Uncoded 04/22/23 04:41 Active Medications: Current Medications Acetaminophen (Acetaminophen 325 Mg Tablet) 650 mg PO Q6H PRN PRN Reason: Pain, Mild (Pain Scale 1-3) Acetaminophen (Acetaminophen Supp 650 Mg Supp.Rect) 650 mg [place] Q6H PRN PRN Reason: Pain, Mild (Pain Scale 1-3) Erythromycin (Erythromycin Base 0.5% Oph Oin 1 Gm Tube) 1 cm EYE-BOTH BID [facility] Last Admin: 04/23/23 07:45 Dose: Not Given Escitalopram Oxalate (Escitalopram Oxalate 5 Mg Tablet) 5 mg PO DAILY [facility] Last Admin: 04/23/23 07:45 Dose: Not Given Lactated Ringer's (Lr) 1,000 mls @ 100 mls/hr IVCONT .Q10H [facility] Last Infusion: 04/23/23 09:18 Dose: Infused Magnesium Sulfate (Magnesium Sulfate/H2o) 2 gm in 50 mls @ 25 mls/hr IV ONCE ONE Stop: 04/23/23 11:28 Melatonin (Melatonin 3 Mg Tablet) 6 mg PO BEDTIME PRN PRN Reason: Insomnia Omeprazole (Omeprazole 20 Mg Capsule.Dr) 20 mg PO DAILY@0630 [facility] Last Admin: 04/23/23 05:21 Dose: 20 mg Ondansetron HCl (Ondansetron Hcl 4 Mg/2 Ml Vial) 4 mg IVPUSH Q8H PRN PRN Reason: Nausea and Vomiting Last Admin: 04/22/23 21:05 Dose: 4 mg Potassium Chloride (Potassium Chloride Er 20 Meq Tab.Er.Prt) 40 meq PO DAILY [facility] Sodium Chloride (0.9 % Sodium Chloride Flush 3 Ml Syringe) 3 ml IVFLUSH QSHIFT [facility] Last Admin: 04/23/23 07:33 Dose: Not Given Home Medications Medication Instructions Recorded Confirmed Last Taken Type cholestyramine-aspartame 4 gram 4 g PO DAILY 11/24/22 04/22/23 Unknown History oral powder (Cholestyramine Light) promethazine 12.5 mg tablet 12.5 mg PO QID PRN Nausea 11/24/22 04/22/23 04/21/23 History escitalopram oxalate 5 mg tablet 5 mg PO DAILY 04/22/23 04/22/23 Unknown History omeprazole 20 mg tablet,delayed 20 mg PO DAILY 04/22/23 04/22/23 Unknown History release Exam Exam Date and Time: April 23, 2023 0954 Height,Weight and Vital Signs: Height 5 ft Weight 54.1 kg Vital Signs Temp Pulse Resp BP Pulse Ox O2 Del Method 04/23/23 12:36 97.4 F 90 15 154/90 H 98 Room Air 04/23/23 07:16 97 F 74 16 160/85 H 96 Room Air 04/22/23 23:17 98.0 F 79 18 148/80 H 97 Room Air 04/22/23 19:24 99.3 F 75 16 161/87 H 98 Room Air 04/22/23 15:08 99.6 F 75 16 153/92 H 97 Room Air Last Vital Signs Temp 97 F 04/23/23 07:16 Pulse 74 04/23/23 07:16 Resp 16 04/23/23 07:16 BP 160/85 H 04/23/23 07:16 Pulse Ox 96 04/23/23 07:16 O2 Del Method Room Air 04/23/23 07:16 Pertinent Lab Results Pertinent Lab Results: Laboratory Tests 04/21/23 04/21/23 04/21/23 18:40 18:40 18:40 WBC 5.4 RBC 3.95 L Hgb 13.7 Hct 37.6 MCV 95.2 MCH 34.7 H MCHC 36.4 H RDW 13.4 Plt Count 138 L MPV 10.2 Immature Gran % (Auto) 0.7 H Neut % (Auto) 57.5 Lymph % (Auto) 32.4 [place] % (Auto) 7.9 Eos % (Auto) 0.6 Baso % (Auto) 0.9 Lymph # (Auto) 1.8 [place] # (Auto) 0.4 Eos # (Auto) 0.0 Baso # (Auto) 0.1 Abs Immat Gran (auto) 0.04 H Absolute Neuts (auto) 3.1 Absolute Nucleated RBC 0.000 Nucleated RBC % (auto) 0.0 ESR PT INR Sodium 136 Potassium 3.0 L D Chloride 95 L Carbon Dioxide 26 Anion Gap 18 BUN 5 L Creatinine 0.56 Estim Creat Clear Calc 75.7 Estimated GFR > 60 Random Glucose 97 Fasting Glucose Lactic Acid 2.3 H* Lactic Acid F/U @ 2Hr Lactic Acid F/U @ 4Hr Calcium 9.6 Magnesium 1.0 L* Iron TIBC % Saturation Unsat Iron Binding Ferritin Total Bilirubin 0.7 Direct Bilirubin AST 118 H ALT 51 H Alkaline Phosphatase 105 C-Reactive Protein 0.27 Total Protein 8.3 H Albumin 4.7 Lipase 30 Vitamin B12 Folate Urine Color Urine Appearance Urine pH Ur Specific [place] Urine Protein Urine Glucose (UA) Urine Ketones Urine Blood Urine Nitrite Ur Leukocyte Esterase Urine RBC Urine WBC Ur Squamous Epith Cells Urine Bacteria Hyaline Casts Stool Leukocytes, Qual Stl C. cayetanensis PCR Stool Rotavirus A PCR Stl Adenov F 40/41 PCR Stool Astrovirus (PCR) Stool Campylobacter PCR Stool Cryptosporidium PCR Stl Sh Tox Pr E STEC PCR Stool E coli O157 PCR Stl Enterotoxigenic E PCR Stool EPEC (PCR) Stool EAEC (PCR) Stl E. histolytica PCR Stool Giardia Lamblia PCR Stl P. shigelloides PCR Stool Salmonella PCR Stool Sapovirus (PCR) Stl Shigella/EIEC PCR St Y.enterocolitica PCR Stool Vibrio (PCR) Stl Vibrio cholerae PCR Stl Norovirus GI/GII PCR C. difficile Tox B Gene 04/21/23 04/21/23 04/21/23 18:40 19:31 20:56 WBC RBC Hgb Hct MCV MCH MCHC RDW Plt Count MPV Immature Gran % (Auto) Neut % (Auto) Lymph % (Auto) [place] % (Auto) Eos % (Auto) Baso % (Auto) Lymph # (Auto) [place] # (Auto) Eos # (Auto) Baso # (Auto) Abs Immat Gran (auto) Absolute Neuts (auto) Absolute Nucleated RBC Nucleated RBC % (auto) ESR 19 PT INR Sodium Potassium Chloride Carbon Dioxide Anion Gap BUN Creatinine Estim Creat Clear Calc Estimated GFR Random Glucose Fasting Glucose Lactic Acid Lactic Acid F/U @ 2Hr 2.1 H* Lactic Acid F/U @ 4Hr Calcium Magnesium Iron TIBC % Saturation Unsat Iron Binding Ferritin Total Bilirubin Direct Bilirubin AST ALT Alkaline Phosphatase C-Reactive Protein Total Protein Albumin Lipase Vitamin B12 Folate Urine Color Dark Yellow Urine Appearance Clear Urine pH 6.5 Ur Specific [place] 1.015 Urine Protein 30 (1+) H Urine Glucose (UA) Negative Urine Ketones Trace Urine Blood Trace H Urine Nitrite Negative Ur Leukocyte Esterase Negative Urine RBC 6-10 H Urine WBC 0-5 Ur Squamous Epith Cells 6-10 Urine Bacteria Trace Hyaline Casts 3-5 Stool Leukocytes, Qual Stl C. cayetanensis PCR Stool Rotavirus A PCR Stl Adenov F 40/41 PCR Stool Astrovirus (PCR) Stool Campylobacter PCR Stool Cryptosporidium PCR Stl Sh Tox Pr E STEC PCR Stool E coli O157 PCR Stl Enterotoxigenic E PCR Stool EPEC (PCR) Stool EAEC (PCR) Stl E. histolytica PCR Stool Giardia Lamblia PCR Stl P. shigelloides PCR Stool Salmonella PCR Stool Sapovirus (PCR) Stl Shigella/EIEC PCR St Y.enterocolitica PCR Stool Vibrio (PCR) Stl Vibrio cholerae PCR Stl Norovirus GI/GII PCR C. difficile Tox B Gene 04/21/23 04/21/23 04/21/23 22:52 22:52 22:52 WBC RBC Hgb Hct MCV MCH MCHC RDW Plt Count MPV Immature Gran % (Auto) Neut % (Auto) Lymph % (Auto) [place] % (Auto) Eos % (Auto) Baso % (Auto) Lymph # (Auto) [place] # (Auto) Eos # (Auto) Baso # (Auto) Abs Immat Gran (auto) Absolute Neuts (auto) Absolute Nucleated RBC Nucleated RBC % (auto) ESR PT INR Sodium Potassium Chloride Carbon Dioxide Anion Gap BUN Creatinine Estim Creat Clear Calc Estimated GFR Random Glucose Fasting Glucose Lactic Acid Lactic Acid F/U @ 2Hr Lactic Acid F/U @ 4Hr Calcium Magnesium Iron TIBC % Saturation Unsat Iron Binding Ferritin Total Bilirubin Direct Bilirubin AST ALT Alkaline Phosphatase C-Reactive Protein Total Protein Albumin Lipase Vitamin B12 Folate Urine Color Urine Appearance Urine pH Ur Specific [place] Urine Protein Urine Glucose (UA) Urine Ketones Urine Blood Urine Nitrite Ur Leukocyte Esterase Urine RBC Urine WBC Ur Squamous Epith Cells Urine Bacteria Hyaline Casts Stool Leukocytes, Qual FEW: < 2/OIF Stl C. cayetanensis PCR Not Detected Stool Rotavirus A PCR Not Detected Stl Adenov F 40/41 PCR Not Detected Stool Astrovirus (PCR) Not Detected Stool Campylobacter PCR Not Detected Stool Cryptosporidium PCR Not Detected Stl Sh Tox Pr E STEC PCR Not Detected Stool E coli O157 PCR Not applicable Stl Enterotoxigenic E PCR Not Detected Stool EPEC (PCR) Not Detected Stool EAEC (PCR) Not Detected Stl E. histolytica PCR Not Detected Stool Giardia Lamblia PCR Not Detected Stl P. shigelloides PCR Not Detected Stool Salmonella PCR Not Detected Stool Sapovirus (PCR) Not Detected Stl Shigella/EIEC PCR Not Detected St Y.enterocolitica PCR Not Detected Stool Vibrio (PCR) Not Detected Stl Vibrio cholerae PCR Not Detected Stl Norovirus GI/GII PCR Not Detected C. difficile Tox B Gene NEGATIVE 04/21/23 04/22/23 04/22/23 23:08 01:30 01:30 WBC RBC Hgb Hct MCV MCH MCHC RDW Plt Count MPV Immature Gran % (Auto) Neut % (Auto) Lymph % (Auto) [place] % (Auto) Eos % (Auto) Baso % (Auto) Lymph # (Auto) [place] # (Auto) Eos # (Auto) Baso # (Auto) Abs Immat Gran (auto) Absolute Neuts (auto) Absolute Nucleated RBC Nucleated RBC % (auto) ESR PT INR Sodium 140 Potassium 3.5 Chloride 106 Carbon Dioxide 22 Anion Gap 16 BUN 3 L Creatinine 0.51 Estim Creat Clear Calc 83.1 Estimated GFR > 60 Random Glucose 93 Fasting Glucose Lactic Acid 1.8 Lactic Acid F/U @ 2Hr Lactic Acid F/U @ 4Hr 2.1 H* Calcium 8.0 L D Magnesium 1.4 L* Iron TIBC % Saturation Unsat Iron Binding Ferritin Total Bilirubin Direct Bilirubin AST ALT Alkaline Phosphatase C-Reactive Protein Total Protein Albumin Lipase Vitamin B12 Folate Urine Color Urine Appearance Urine pH Ur Specific [place] Urine Protein Urine Glucose (UA) Urine Ketones Urine Blood Urine Nitrite Ur Leukocyte Esterase Urine RBC Urine WBC Ur Squamous Epith Cells Urine Bacteria Hyaline Casts Stool Leukocytes, Qual Stl C. cayetanensis PCR Stool Rotavirus A PCR Stl Adenov F PCR Stool Astrovirus (PCR) Stool Campylobacter PCR Stool Cryptosporidium PCR Stl Sh Tox Pr E STEC PCR Stool E coli O157 PCR Stl Enterotoxigenic E PCR Stool EPEC (PCR) Stool EAEC (PCR) Stl E. histolytica PCR Stool Giardia Lamblia PCR Stl P. shigelloides PCR Stool Salmonella PCR Stool Sapovirus (PCR) Stl Shigella/EIEC PCR St Y.enterocolitica PCR Stool Vibrio (PCR) Stl Vibrio cholerae PCR Stl Norovirus GI/GII PCR C. difficile Tox B Gene 04/22/23 04/22/23 04/22/23 05:43 05:43 05:43 WBC 5.8 RBC 3.71 L Hgb 12.9 Hct 36.7 L MCV 98.9 H MCH 34.8 H MCHC 35.1 H RDW 14.1 Plt Count 137 L MPV 9.9 Immature Gran % (Auto) 0.5 H Neut % (Auto) 68.0 Lymph % (Auto) 21.7 [place] % (Auto) 8.3 Eos % (Auto) 0.5 Baso % (Auto) 1.0 Lymph # (Auto) 1.3 [place] # (Auto) 0.5 Eos # (Auto) 0.0 Baso # (Auto) 0.1 Abs Immat Gran (auto) 0.03 Absolute Neuts (auto) 3.9 Absolute Nucleated RBC 0.000 Nucleated RBC % (auto) 0.0 ESR PT INR Sodium 136 Potassium 3.5 Chloride 101 Carbon Dioxide 22 Anion Gap 17 BUN < 3 L Creatinine 0.55 Estim Creat Clear Calc 77.1 Estimated GFR > 60 Random Glucose 111 Fasting Glucose Lactic Acid Lactic Acid F/U @ 2Hr Lactic Acid F/U @ 4Hr Calcium 7.9 L Magnesium 1.7 Cancelled Iron TIBC % Saturation Unsat Iron Binding Ferritin Total Bilirubin Direct Bilirubin AST ALT Alkaline Phosphatase C-Reactive Protein Total Protein Albumin Lipase Vitamin B12 Folate Urine Color Urine Appearance Urine pH Ur Specific [place] Urine Protein Urine Glucose (UA) Urine Ketones Urine Blood Urine Nitrite Ur Leukocyte Esterase Urine RBC Urine WBC Ur Squamous Epith Cells Urine Bacteria Hyaline Casts Stool Leukocytes, Qual Stl C. cayetanensis PCR Stool Rotavirus A PCR Stl Adenov F 40/41 PCR Stool Astrovirus (PCR) Stool Campylobacter PCR Stool Cryptosporidium PCR Stl Sh Tox Pr E STEC PCR Stool E coli O157 PCR Stl Enterotoxigenic E PCR Stool EPEC (PCR) Stool EAEC (PCR) Stl E. histolytica PCR Stool Giardia Lamblia PCR Stl P. shigelloides PCR Stool Salmonella PCR Stool Sapovirus (PCR) Stl Shigella/EIEC PCR St Y.enterocolitica PCR Stool Vibrio (PCR) Stl Vibrio cholerae PCR Stl Norovirus GI/GII PCR C. difficile Tox B Gene 04/23/23 04/23/23 04/23/23 05:20 05:20 05:21 WBC RBC Hgb Hct MCV MCH MCHC RDW Plt Count MPV Immature Gran % (Auto) Neut % (Auto) Lymph % (Auto) [place] % (Auto) Eos % (Auto) Baso % (Auto) Lymph # (Auto) [place] # (Auto) Eos # (Auto) Baso # (Auto) Abs Immat Gran (auto) Absolute Neuts (auto) Absolute Nucleated RBC Nucleated RBC % (auto) ESR PT 13.5 H INR 1.1 Sodium Potassium Chloride Carbon Dioxide Anion Gap BUN Creatinine Estim Creat Clear Calc Estimated GFR Random Glucose Fasting Glucose Lactic Acid Lactic Acid F/U @ 2Hr Lactic Acid F/U @ 4Hr Calcium Magnesium Iron TIBC % Saturation Unsat Iron Binding Ferritin 512 H Total Bilirubin Direct Bilirubin AST ALT Alkaline Phosphatase C-Reactive Protein Total Protein Albumin Lipase Vitamin B12 415 Folate 5.1 Urine Color Urine Appearance Urine pH Ur Specific [place] Urine Protein Urine Glucose (UA) Urine Ketones Urine Blood Urine Nitrite Ur Leukocyte Esterase Urine RBC Urine WBC Ur Squamous Epith Cells Urine Bacteria Hyaline Casts Stool Leukocytes, Qual Stl C. cayetanensis PCR Stool Rotavirus A PCR Stl Adenov F PCR Stool Astrovirus (PCR) Stool Campylobacter PCR Stool Cryptosporidium PCR Stl Sh Tox Pr E STEC PCR Stool E coli O157 PCR Stl Enterotoxigenic E PCR Stool EPEC (PCR) Stool EAEC (PCR) Stl E. histolytica PCR Stool Giardia Lamblia PCR Stl P. shigelloides PCR Stool Salmonella PCR Stool Sapovirus (PCR) Stl Shigella/EIEC PCR St Y.enterocolitica PCR Stool Vibrio (PCR) Stl Vibrio cholerae PCR Stl Norovirus GI/GII PCR C. difficile Tox B Gene 04/23/23 05:21 WBC RBC Hgb Hct MCV MCH MCHC RDW Plt Count MPV Immature Gran % (Auto) Neut % (Auto) Lymph % (Auto) [place] % (Auto) Eos % (Auto) Baso % (Auto) Lymph # (Auto) [place] # (Auto) Eos # (Auto) Baso # (Auto) Abs Immat Gran (auto) Absolute Neuts (auto) Absolute Nucleated RBC Nucleated RBC % (auto) ESR PT INR Sodium 132 L Potassium 3.0 L Chloride 96 Carbon Dioxide 24 Anion Gap 15 BUN 3 L Creatinine 0.55 Estim Creat Clear Calc 77.1 Estimated GFR > 60 Random Glucose Fasting Glucose 91 Lactic Acid Lactic Acid F/U @ 2Hr Lactic Acid F/U @ 4Hr Calcium 9.2 D Magnesium 1.2 L* Iron 61 TIBC 238 % Saturation 26 Unsat Iron Binding 177 Ferritin Total Bilirubin 1.0 Direct Bilirubin 0.5 AST 54 H ALT 36 H Alkaline Phosphatase 88 C-Reactive Protein Total Protein 7.4 Albumin 4.2 Lipase Vitamin B12 Folate Urine Color Urine Appearance Urine pH Ur Specific [place] Urine Protein Urine Glucose (UA) Urine Ketones Urine Blood Urine Nitrite Ur Leukocyte Esterase Urine RBC Urine WBC Ur Squamous Epith Cells Urine Bacteria Hyaline Casts Stool Leukocytes, Qual Stl C. cayetanensis PCR Stool Rotavirus A PCR Stl Adenov F PCR Stool Astrovirus (PCR) Stool Campylobacter PCR Stool Cryptosporidium PCR Stl Sh Tox Pr E STEC PCR Stool E coli O157 PCR Stl Enterotoxigenic E PCR Stool EPEC (PCR) Stool EAEC (PCR) Stl E. histolytica PCR Stool Giardia Lamblia PCR Stl P. shigelloides PCR Stool Salmonella PCR Stool Sapovirus (PCR) Stl Shigella/EIEC PCR St Y.enterocolitica PCR Stool Vibrio (PCR) Stl Vibrio cholerae PCR Stl Norovirus GI/GII PCR C. difficile Tox B Gene Repeat labs Mg 2.7 mg/dL K 3.7 mmol/L Airway Mallampati Class: II TM Dist: >3cm Neck ROM: Full Loose/Missing/Broken Teeth: Yes (Caps intact. No loose) Heart: RRR Lungs: CTAB Assessment and Plan Assessment Anesthesia Assessment: Anesthesia Plan Discussed and Chart Reviewed Final Anesthetic Review Family History of Problems with Anesthesia: No History of Problems with Anesthesia: Yes (Sore throat after 1 of the surgeries) NPO: Yes ASA Class: II Final Preanesthetic Review: No Changes in Pt Med Stat, Meds/Allgs Chart Reviewed, Consent Obtained/Reviewed and Anes Risks/Benef Reviewed Patient Risk: Intermediate Procedure Risk: Low Assessment/Block/Sedation in SS: Assess/Block/Sedation-SS Anesthetic Plan Anesthetic Plan: MAC: Disposition: Standard PACU
[2023-04-23] MEDS: ondansetron HCL 4 MG/2 ML VIAL IVPUSH (09:56)
[2023-04-23 12:22] LABS: Magnesium 2.7 mg/dL (1.6-2.6); Potassium 3.7 mmol/L (3.3-5.1)
[2023-04-23 12:36] VITALS: BP 154/90; PULSE 90; RESP 15; TEMP 36.3; O2SAT 98
[2023-04-23 14:40] VITALS: BP 92/56; PULSE 111; RESP 16; TEMP 36.3; O2SAT 98
[2023-04-23 14:55] VITALS: BP 140/88; PULSE 85; RESP 20; TEMP 36.6; O2SAT 98
--- NOTE | 2023-04-23 14:59 | P.BOP_ITS ---
Brief Operative Note Date of Service: 04/23/23 Pre-op diagnosis: Diarrhea, Vomiting, Abdominal pain Post-op diagnosis: other (Hiatal hernia, GERD, Gastritis, Duodenitis, R/O Microscopic colitis, Diverticulosis) Procedure: EGD with biopsies, Colonoscopy to the anastomosis and small bowel with biopsies Surgeon: Ricky Falcon Anesthesia: MAC Was an [facility] Laboratory Assistant used for this Procedure?: No Estimated blood loss (mL): 2.0 Pathology: other (A. Descending duodenum B. Duodenal bulb C. Gastric antrum D. EG Junction at 32cm E. Distal small bowel F. Colon distal to anastomosis G. Descending duodenum) Condition: stable Disposition: PACU
--- NOTE | 2023-04-23 15:04 | PM.EVENT ---
Event Note Date of Service: 04/23/23 Event Note: GI-Full note dictated EGD 1. Duodenitis--biopsied in descending duodenum and duodenal bulb-R/O celiac disease 2. Gastritis--biopsied antrum 3. Moderate-sized hiatal hernia 4. Changes of GERD with irregular EG Junction--biopsies taken at EG Junction at 32cm Colonoscopy to the anastomosis and small bowel 1. Normal small bowel and colonic mucosa with a normal anastomosis 2. Diverticulosis 3. Internal hemorrhoids No polyps, no IBD Biopsies taken from the small bowel and colon Rec: Check path to R/O celiac disease, H.pylori, Faust's, microscopic colitis. Advance to a lactose-free and low residue diet, use Imodium and Dicyclomine prn, continue PPI. Hold on cholestyramine for now. If symptoms persist she would need further outpatient workup with a small bowel series, MR enterography, and/or a small bowel video capsule study. If tolerating diet and she feels up to it she could be discharged later this evening, otherwise by tomorrow. D/W patient in detail. Thanks. Time Spent With Patient Time: Total time managing care of this patient today ____ minutes.
[2023-04-23 15:27] VITALS: BP 127/66; PULSE 78; RESP 18; TEMP 36.3; O2SAT 96
--- NOTE | 2023-04-24 02:14 | OP_ITS ---
DATE OF SERVICE: 04/23/2023 SURGEON: Ricky Falcon MD INDICATIONS: The patient presents for evaluation of intermittent nausea, vomiting, gastroesophageal reflux, abdominal pain, and diarrhea. Full consent has been obtained from her for both procedures, including risks of bleeding and perforation. PREOPERATIVE DIAGNOSIS: POSTOPERATIVE DIAGNOSIS: PROCEDURE PERFORMED: Esophagogastroduodenoscopy with biopsies, and colonoscopy to the anastomosis and small bowel with biopsies. ESTIMATED BLOOD LOSS: COMPLICATIONS: ANESTHESIA: Medication used, monitored anesthesia care. ASSISTANTS: SPECIMENS: PREOPERATIVE DIAGNOSES: Gastroesophageal reflux, abdominal pain, nausea, vomiting, and diarrhea. POSTOPERATIVE DIAGNOSES: Gastroesophageal reflux, abdominal pain, nausea, vomiting, and diarrhea, hiatal hernia, reflux and rule out Faust's, gastritis, duodenitis, rule out celiac disease, rule out microscopic colitis, diverticulosis, and internal hemorrhoids. DESCRIPTION OF PROCEDURE: The patient was placed in the left lateral decubitus position. The Olympus video gastroscope was passed in the posterior oropharynx and upper esophagus under direct vision. The scope was passed slowly to the distal esophagus. The gastroesophageal junction appeared at 32 cm. There was some slight irregularity consistent with reflux but no evidence of any esophagitis nor definitive Faust's mucosa. There were no ulcerations nor lesions. The scope entered the stomach. There was a moderate-sized hiatal hernia. The hiatal hernia mucosa appeared normal. The scope was advanced to the pylorus and the duodenum was cannulated to the descending portion. The duodenum including the bulb had some changes consistent with edema and erythema, particularly in the duodenal bulb. There was no definitive evidence of scalloping of the duodenal folds. Biopsies were obtained in the descending duodenum and in the duodenal bulb. The scope was withdrawn back to the stomach. The gastric antrum and body had some changes of a gastritis with some overlying edema, erythema, and some minimal friability. There were no ulcerations, mass, nor erosions. There was good peristalsis. Biopsies were obtained from the gastric antrum. The scope was retroflexed visualizing the proximal stomach carefully, which appeared normal, without any sign of mass or ulceration. The scope was straightened out and withdrawn back in the esophagus. Biopsies were obtained at the EG junction at 32 cm. Proximal to that the esophageal mucosa appeared normal. The scope was withdrawn from the patient. She was turned around for the colonoscopy. The digital rectal exam revealed no abnormalities. The Olympus video pediatric colonoscope was entered into the rectum and advanced easily to the anastomosis. The anastomosis appeared normal. There was no sign of any ulceration, stricture, nor mass. I was able to cannulate the small bowel for about 5 cm but could not advance further due what I felt were some adhesions and some acute angulation, which limited advancement of the scope. I did not visualize any sign of luminal disease. Biopsies were obtained from the small bowel. The scope was withdrawn back in the colon. The scope was then slowly withdrawn assessing all mucosal surfaces carefully. Preparation was excellent. I did not visualize any sign of colitis, polyps, nor angiodysplasia. Random biopsies were obtained in the colon just distal to the anastomosis and in the descending colon. There was a mild amount of sigmoid diverticulosis. In the rectum, the scope was retroflexed visualizing internal hemorrhoids but no other pathology. The rectal mucosa appeared normal. The scope was straightened and withdrawn from the patient. She tolerated both procedures well and was returned to the recovery area in stable condition. IMPRESSION: 1. Duodenitis, rule out celiac disease. 2. Gastritis. 3. Hiatal hernia. 4. Gastroesophageal reflux, rule out Faust's esophagus. 5. Rule out microscopic colitis. 6. Diverticulosis. 7. Internal hemorrhoids. PLAN: The results of the biopsies will be checked. In the meantime, her diet will be advanced to a lactose-free and low residue diet. She should use Imodium p.r.n. for diarrhea and dicyclomine p.r.n. for any abdominal cramps or bloating. I will continue her PPI for chronic reflux. I would hold off on using cholestyramine for now. If she tolerates her diet and wants to go home tonight I think that is reasonable. Otherwise, I will watch her until tomorrow and then we will recheck her labs as far as her potassium and magnesium are concerned. If she has persistent symptoms with a negative workup in regard to the biopsies, I would then recommend further outpatient workup with a small bowel series, MRI with enterography, and/or a small bowel video capsule study. We may eventually want to put her on a trial of cholestyramine as well to treat any component of a bile-induced diarrhea. This has been discussed with the patient in detail. MD AMAYA Amado/ANNABELLE / [id number] [email or web address]
--- NOTE | 2023-04-28 19:22 | P.DS_ITS ---
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 Patient states that 3 years ago she underwent ileocecal resection and has been having chronic diarrhea since.? She was diagnosed to have Norovirus infection about a month ago and since then patient has had 2 worsening of her diarrhea, nausea and multiple episodes of nonbloody emesis.? Patient states it takes a while for her to recover from any infection due to her history of chronic diarrhea.? Endorses intermittent chills and fever.? No chest discomfort, palpitations, shortness of breath, abdominal pain, changes in urinary habits. In the emergency department, imaging concerning for colitis and Gastroenterology was consulted who requested admission. Hospital course: 63-year-old female with pertinent history of chronic diarrhea due to ileocecal resection, gastroesophageal reflux disease who presents to the emergency department for evaluation of nausea, vomiting and loose stools. #.? Intractable vomiting, diarrhea.? With imaging suggestive of mild colitis.? nl WBC, doubt bacterial colitis, hold Abx, for EGD and colonoscopy today #.? Hypokalemia and hypomagnesemia due to GI losses and still low, will replet? with PO K and IV mag #.? Gastroesophageal reflux disease.? On PPI #. conjuctivitis Time Spent with Patient Time attestation: Total time managing care of this patient today ____ minutes. Discharge coordination time: Greater than 30 minutes Quality: Safe Use of Opioids Does Pt have an Active Cancer Diagnosis on the Problem List?: No Quality: Stroke Does the patient have a stroke diagnosis?: No Physical Exam Vital Signs: Vital Signs: Last Vital Signs Temp 97.3 F 04/23/23 15:27 Pulse 78 04/23/23 15:27 Resp 18 04/23/23 15:27 BP 127/66 04/23/23 15:27 Pulse Ox 96 04/23/23 15:27 O2 Del Method Room Air 04/23/23 15:27 BMI result Body Mass Index 23.3 DS: Data Data Completed and Pending Completed studies during hospitalization [Text1]: Pending at discharge 04/23/23 14:03 Surgical [PTH] Routine Discharge Plan Discharge Anticipated Discharge Date/Time: 04/23/23 16:00 Patient Disposition: Home, Self-Care Discharge Diagnosis: Diarrhea, nausea and vomitting Referrals: REECE GAYTAN [Primary Care Provider] - 1 Week Discharge Medications: New loperamide 2 mg Capsule 2 mg PO Q4H PRN (Reason: Diarrhea) Qty: 30 0RF dicyclomine 10 mg capsule 10 mg PO BID PRN (Reason: abdominal cramps) Qty: 30 0RF famotidine [Pepcid] 20 mg tablet 20 mg PO BID Qty: 60 0RF Continued escitalopram oxalate 5 mg tablet 5 mg PO DAILY promethazine 12.5 mg tablet 12.5 mg PO QID PRN (Reason: Nausea) Discontinued omeprazole 20 mg Tablet,Delayed Release (Dr/Ec) 20 mg PO DAILY Cholestyramine Light 4 gram powder 4 g PO DAILY Discharge Orders: Discharge Order (Routine); Ordered 04/23/23 Ordered By: Bobby Ernst Diet: Advance to usual diet Activity on Discharge: As tolerated Stand Alone Forms: Patient Portal Discharge page Other Ambulatory Orders: Basic Metabolic Panel (Routine) Timeframe: 1 Week Facility: [facility] - Location: Laboratory Ordered By: Bobby Ernst Magnesium (Routine) Timeframe: 1 Week Facility: [facility] - Location: Laboratory Ordered By: Bobby Ernst Care Plan Goals: recovery from nausea, vomitting Health Concerns: 1. Duodenitis--biopsied in descending duodenum and duodenal bulb-R/O celiac disease 2. Gastritis--biopsied antrum 3. Moderate-sized hiatal hernia 4. Changes of GERD with irregular [place]--biopsies taken at [place] at 32cm Colonoscopy to the anastomosis and small bowel 1. Normal small bowel and colonic mucosa with a normal anastomosis 2. Diverticulosis 3. Internal hemorrhoids No polyps, no IBD Biopsies taken from the small bowel and colon Plan of Treatment: Take Dicyclomine as needed for cramps Take Imodium as needed for diarrhea, Follow up with Dr. falcon Assessment: as above Discharge Date/Time: 04/23/23 16:55
[2023-04-29 13:33] LABS: Gastrin 52 pg/mL (<=100)
== END 2023-04-23 16:55 | disposition home or self-care (01) | DRG 249 ==
LOC: HO.ED 04-22 01:26 → HO.EDOVER 04-22 01:42 → HO.S3 04-22 02:50
PROVIDERS: Anesthesiology; Internal Medicine; Registered Nurse Emergency; Admitting Provider Student in an Organized Health Care Education/Training Program; Emergency Provider Emergency Medicine Emergency Medical Services; PCP Internal Medicine; Visit Provider Internal Medicine
PROC: 0DB98ZX Excision of Duodenum, Via Natural or Artificial Opening Endoscopic, Diagnostic (ICD-10-PCS; principal; 2023-04-23 13:30)
DX: K52.9 Noninfective gastroenteritis and colitis, unspecified (principal); E83.42 Hypomagnesemia; E87.6 Hypokalemia; K64.8 Other hemorrhoids; H10.9 Unspecified conjunctivitis; K21.9 Gastro-esophageal reflux disease without esophagitis; K29.70 Gastritis, unspecified, without bleeding; K44.9 Diaphragmatic hernia without obstruction or gangrene; K57.30 Diverticulosis of large intestine without perforation or abscess without bleeding; Z98.0 Intestinal bypass and anastomosis status; Z79.899 Other long term (current) drug therapy
CPT/HCPCS: 36415; 74177; 80048; 80053; 80076; 81001; 82607; 82728; 82746; 82941; 83540; 83605; 83690; 83735; 84132; 85025; 85610; 85652; 86140; 87040; 87493; 87507; 88305; 88342; 89055; 99285; J0696; J2405; J2550; J3475; Q9967

== ENCOUNTER → 2023-04-22 01:38 | Outpatient (BNV) | payer OTHER, SELFPAY | PROVIDERS: Admitting Provider Student in an Organized Health Care Education/Training Program; Emergency Provider Emergency Medicine Emergency Medical Services; PCP Internal Medicine; Visit Provider Student in an Organized Health Care Education/Training Program | DX: R11.10 Vomiting, unspecified (principal); K21.9 Gastro-esophageal reflux disease without esophagitis; K52.9 Noninfective gastroenteritis and colitis, unspecified | CPT/HCPCS: 99222; 99232; 99239; 99499 ==

== ENCOUNTER 2023-05-04 12:37 | Outpatient (REF) | payer OTHER, SELFPAY ==
--- NOTE | ~2023-05-04 | CT_ITS ---
EXAMINATION: CT ENTEROGRAPHY ABDOMEN AND PELVIS WITH CONTRAST CLINICAL INFORMATION: Diarrhea status post ileocolic resection. COMPARISON: CT abdomen/pelvis 04/21/2023 TECHNIQUE: Study performed with oral VoLumen (1350 mL) and 480 mL of water to distend the abdomen. The patient was injected with 85 mL Omnipaque 350 intravenous contrast which was administered without adverse effect. Coronal and sagittal reformatted images were obtained at the technologist's workstation. This CT examination was performed using dose optimization techniques as appropriate, variously including the following: *Automated exposure control *Adjustment of mA and/or kV according to patient size (this includes techniques or standardized protocols for targeted exams where dose is matched to indication/reason for exam; i.e. extremities or head) *Use of iterative reconstruction technique DLP: 244 mGy-cm FINDINGS: GASTROINTESTINAL FINDINGS: Stomach: Satisfactorily distended and unremarkable in appearance. Small intestine: Suboptimally distended with areas of apparent/questionable wall thickening. Large intestine: Status post partial right colectomy. Large bowel is distended with fluid. Submucosal enhancement of the sigmoid colon. Diverticular disease of the sigmoid colon. The appendix is not visualized. Additional findings: Prominence of the vasa recta. ABDOMINAL AND PELVIC CT FINDINGS: Liver, gallbladder, biliary tract: The liver is diffusely decreased in attenuation. There are geographic areas of increased density along the gallbladder fossa and at the hepatic dome. No focal space-occupying lesion is identified. No biliary ductal dilatation. The gallbladder is surgically absent. Pancreas: No ductal dilatation. Spleen: Not enlarged. Adrenal glands and kidneys: No adrenal mass. The kidneys are symmetric in size and enhancement. No hydronephrosis or perinephric fluid collection. Ureters and bladder: The urinary bladder is not well-distended. Lymphovascular structures: No bulky abdominal or pelvic lymphadenopathy. Normal caliber abdominal aorta. Bones: No destructive bone lesions. Lung bases: Partially imaged bilateral breast implants. CT/CT enterography IMPRESSION: Fluid filled large bowel with submucosal enhancement of the sigmoid colon and engorgement of the vasa recta. This most likely represents colitis. Infectious and inflammatory etiologies should be considered. Hepatic steatosis. Geographic areas of increased density along the gallbladder fossa and at the hepatic dome without discrete underlying lesion. This may be further evaluated with MRI abdomen
[2023-05-04] MEDS: Sorbitol/Mannit/Xanth Imaging 500 ML LIQUID 1500 ML PO (14:52)
[2023-05-04] MEDS: iohexoL 350 MG/ML 100 ML INFUS..BTL 85 ML IV (14:52)
== END 2023-05-04 12:38 | disposition home or self-care (01) ==
LOC: HO.CT 12:37
PROVIDERS: Visit Provider Internal Medicine
DX: R19.7 Diarrhea, unspecified (principal); K76.0 Fatty (change of) liver, not elsewhere classified
CPT/HCPCS: 74177; Q9967